=== PATIENT | female | born 1985 | race Caucasian/White ===

== ENCOUNTER 2019-05-23 13:05 | Outpatient (CLI) | payer MEDICAID, SELFPAY ==
--- NOTE | 2019-05-23 13:12 | US_ITS ---
WS: [id number] ULTRASOUND RENAL TECHNIQUE: Ultrasound examination of both kidneys. CLINICAL INFORMATION: RLQ ABDOMINAL PAIN COMPARISON: None. FINDINGS: RIGHT: Right kidney is normal in size and appearance. Echogenicity: Normal. Cortical thickness: 1.5 cm; Normal. Hydronephrosis: None. Perinephric fluid: None. Right kidney measures: 11.2 cm x 5.7 cm x 4.6 cm. LEFT: Left kidney is normal in size and appearance. Echogenicity: Normal. Cortical thickness: 1.5 cm; Normal. Hydronephrosis: None. Perinephric fluid: None. Left kidney measures: 11.9 cm x 5.0 cm x 5.6 cm. Normal visualized aorta. Normal bladder. Partially visualized intrauterine gestation US/US renal BI* [id number] IMPRESSION: Normal renal ultrasound
--- NOTE | 2019-05-23 13:12 | US_ITS ---
WS: [id number] ULTRASOUND ABDOMEN LIMITED CLINICAL INFORMATION: R LOWER QUADRANT ABDOMINAL PAIN COMPARISON: None. FINDINGS: Right ovary is normal in appearance. Normal vascularity. Small cyst right ovary measuring 1.3 x 0.7 C M. Appendix is not definitely visualized. However no secondary signs of acute appendicitis. No noncompre ssible bowel. No cystic or solid mass in the right lower quadrant. US/US abdomen limited [id number] IMPRESSION: 1. Normal right ovary with a small right ovarian cyst. 2. Appendix is not definitely visualized, however no evidence of acute appendi citis.
== END 2019-05-23 13:06 | disposition home or self-care (01) ==
PROVIDERS: Family Provider Family Medicine; PCP Family Medicine; Visit Provider Family Medicine
DX: R10.31 Right lower quadrant pain (principal); N83.201 Unspecified ovarian cyst, right side
CPT/HCPCS: 76705; 76770

== ENCOUNTER 2019-06-07 09:36 | Outpatient (CLI) | payer MEDICAID, SELFPAY ==
--- NOTE | 2019-06-07 10:15 | US_ITS ---
WS: [id number] OB ultrasound, 06/07/2019 Clinical Data: SUPERVISION OF ELDERLY MULTIGRAVIDA/ANATOMY CHECK Comparison: OB ultrasound, 04/08/2019. Findings: There is a single intrauterine in a variable lie. The placenta is posterior and grade 0. Th ere is a normal amount of amnionic fluid. The heart rate is 141 beats per minute. Measurements of growth and development: BPD: 4.2 cm HC: 15.7 cm AC: 12.9 cm FL: 2.8 cm The estimated weight is 242 or approximately 8 ounces. The estimated gestational age is 18w4d w ith an MIRTHA of approximately 11/04/2019. anatomy show a normal stomach, kidneys, bladder, cord insertion, three-vessel cord, entire spin e, four-chamber heart, lateral cerebral ventricles, cerebellum and cisterna magna. US/US OB >= 14 weeks fetus [id number] Impression: 1. Single intrauterine in variable lie. 2. Estimated gestational age 18w4d with an MIRTHA of 11/04/2019. 3. heart rate 141 beats per minute.
== END 2019-06-07 09:37 | disposition home or self-care (01) ==
PROVIDERS: Family Provider Family Medicine; PCP Family Medicine; Visit Provider Family Medicine
DX: O09.521 Supervision of elderly multigravida, first trimester (principal); Z36.89 Encounter for other specified antenatal screening; Z3A.18 18 weeks gestation of pregnancy
CPT/HCPCS: 76805

== ENCOUNTER 2019-09-10 14:45 | Outpatient (CLI) | payer MEDICAID, SELFPAY ==
--- NOTE | 2019-09-10 | US_ITS ---
WS: [id number] ULTRASOUND OB LIMITED TECHNIQUE: Limited ultrasound examination of the fetus. CLINICAL INFORMATION: GROWTH CHECK COMPARISON: June 07, 2019 FINDINGS: Cervix measures 3.8 cm Single interuterine gestation. presentation is breech Placental location is posterior. Placenta grade: 0. heart rate 153 BPM. Normal amniotic fluid volume. Anatomy: BDP: 8.3 cm = 33w3d HC: 30.3 cm = 33w4d AC: 28.0 cm = 32w0d FEMUR LENGTH: 6.4 cm = 33w1d Estimated weight: 4 lbs. 7 oz. EGA by ultrasound: 33 weeks 0 days MIRTHA by ultrasound: October 29, 2019 US/US OB limited [id number] IMPRESSION: 1. Single intrauterine gestation with breech presentation. 2. Placenta is posterior grade 0. 3. Normal amniotic fluid volume. 4. Estimated gestational age 33 weeks 0 days with estimated delivery 2019
== END 2019-09-10 14:46 | disposition home or self-care (01) ==
PROVIDERS: Family Provider Family Medicine; PCP Family Medicine; Visit Provider Family Medicine
DX: O09.523 Supervision of elderly multigravida, third trimester (principal); O09.813 Supervision of pregnancy resulting from assisted reproductive technology, third trimester; Z3A.33 33 weeks gestation of pregnancy
CPT/HCPCS: 76815

== ENCOUNTER 2019-09-10 16:03 | Outpatient (CLI) | payer MEDICAID, SELFPAY ==
[2019-09-10 16:11] VITALS: TEMP 36.6
[2019-09-10 16:26] VITALS: BP 116/55; PULSE 72
[2019-09-10 16:41] VITALS: BP 116/58; PULSE 71
[2019-09-10 16:56] VITALS: BP 120/60; PULSE 79
[2019-09-10 19:26] VITALS: BMI 32.5
== END 2019-09-10 17:00 | disposition home or self-care (01) ==
LOC: OPOB 16:05
PROVIDERS: Family Provider Family Medicine; PCP Family Medicine; Visit Provider Family Medicine
DX: O26.899 Other specified pregnancy related conditions, unspecified trimester (principal); Z3A.00 Weeks of gestation of pregnancy not specified; R10.9 Unspecified abdominal pain
CPT/HCPCS: 59025; 99211

== ENCOUNTER 2019-10-13 03:20 | Outpatient (CLI) | payer MEDICAID, SELFPAY ==
[2019-10-13] VITALS (18 sets, daily range): BP systolic 0–138; BP diastolic 0–68; PULSE 66–81; TEMP 36.8; O2SAT 97–98; BMI 32.5
== END 2019-10-13 04:55 | disposition home or self-care (01) ==
LOC: OPOB 03:23 → OBGYN 04:55
PROVIDERS: PCP Family Medicine; Visit Provider Family Medicine
DX: O26.899 Other specified pregnancy related conditions, unspecified trimester (principal); Z3A.00 Weeks of gestation of pregnancy not specified; N89.8 Other specified noninflammatory disorders of vagina
CPT/HCPCS: 59025; 83986; 99211

== ENCOUNTER 2019-10-14 14:28 | Outpatient (CLI) | payer MEDICAID, SELFPAY ==
--- NOTE | 2019-10-14 14:31 | USCV_ITS ---
Yuliana Crawford Age: 34 Gender: F : 1985 Exam Date: 10/14/2019 14:43 Ordering Phys: Asha Bowen MD Technologist: Alia Foss Exam Location: [facility] [place] Indication: PAIN HISTORY: Lower extremity pain. PROCEDURES: Venous duplex imaging was performed in only the left lower extremity. The following venous structures were evaluated: common femoral vein, profunda vein, proximal portion of the greater saphenous vein, superficial femoral vein, and the popliteal vein. In addition, the posterior tibial and peroneal trunk were evaluated. Serial compression, augmentation maneuvers, and spectral Doppler flow evaluation were performed. FINDINGS: Normal 2-D Doppler and augmentation and compressibility throughout the lower extremity venous structures. Additional imaging through the proximal calf veins also reveals no thrombus. Limited evaluation of the greater saphenous vein is patent with no thrombus. CONCLUSIONS No DVT left lower extremity. Dr. Chani Preciado DO (Electronically Signed) Final Date: 14 October 2019 16:18 S
== END 2019-10-14 14:29 | disposition home or self-care (01) ==
LOC: RAD 14:30
PROVIDERS: PCP Family Medicine; Visit Provider Family Medicine
DX: M79.662 Pain in left lower leg (principal); M79.605 Pain in left leg
CPT/HCPCS: 93971

== ENCOUNTER 2019-11-07 02:00 | Inpatient (IN) | payer MEDICAID, SELFPAY ==
[2019-11-06 20:53] VITALS: BP 129/68; PULSE 75; RESP 16; TEMP 36.7
[2019-11-06 21:00] VITALS: BMI 34.4
[2019-11-06] MEDS: miSOPROStol 100 mcg tablet 25 MCG VAGINAL (21:47)
[2019-11-06 21:54] VITALS: BP 128/59; PULSE 70
[2019-11-06 22:14] VITALS: BP 115/57; PULSE 72
[2019-11-06 22:17] LABS: Basophils % 0.5 %; Eosinophils # 0.2 10^3/uL (0.0-0.8); Eosinophils % 1.7 %; Hematocrit 37.1 % (37.0-47.0); Hemoglobin 12.1 g/dL (11.5-15.3); Lymphocytes # 1.6 10^3/uL (0.8-4.8); Lymphocytes % 18.2 %; Mean Corpuscular HGB Conc 32.6 g/dL (30.0-36.0); Mean Corpuscular Hemoglobin 28.6 pg (28.0-34.0); Mean Corpuscular Volume 87.7 fL (81-99); Mean Platelet Volume 10.6 fL (7.4-10.4); Monocytes # 0.6 10^3/uL (0.2-0.9); Monocytes % 6.5 %; Neutrophils # 6.31 10^3/uL (1.8-7.7); Neutrophils % 72.1 %; Nucleated Red Blood Cells % 0 %; Platelet Count 261 10^3/cmm (130-400); Red Blood Count 4.23 10^6/uL (4.1-5.3); Red Cell Distribution Width 13.5 % (12.1-15.1); White Blood Count 8.8 10^3/uL (4.0-10.0)
[2019-11-06 23:20] VITALS: BP 127/57; PULSE 64; RESP 16; TEMP 36.5
[2019-11-07] VITALS (82 sets, daily range): BP systolic 0–147; BP diastolic 0–85; PULSE 61–116; RESP 16–18; TEMP 36.7–37.1; O2SAT 98
[2019-11-07] MEDS: lactated ringers 1,000 ML 999 ML IV (02:05)
--- NOTE | 2019-11-07 03:03 | ANES.PAUD2 ---
Pre-Anesthetic Update Pre-Anesthetic Assessment: Date of Surgery/Procedure: 11/07/19 Preop Diagnosis: IUP Proposed Procedure: epidural Any changes to Pre-Anesthetic Assessment?: No Labs Last 48hrs: Laboratory Results - last 48 hr 11/06/19 21:40 WBC 8.8 RBC 4.23 Hgb 12.1 Hct 37.1 MCV 87.7 MCH 28.6 MCHC 32.6 RDW 13.5 Plt Count 261 MPV 10.6 H Neut % (Auto) 72.1 Lymph % (Auto) 18.2 Caldwell % (Auto) 6.5 Eos % (Auto) 1.7 Baso % (Auto) 0.5 Neut # (Auto) 6.31 Lymph # (Auto) 1.6 Caldwell # (Auto) 0.6 Eos # (Auto) 0.2 Baso # (Auto) 0.0 Nucleated RBC % (a uto) 0 Nucleated RBCs # 0.0 Vitals: Temperature 97.7 F 11/06/19 23:20 Temperature Source Oral 11/06/19 23:20 Pulse Rate 75 11/07/19 00:49 Pulse Rhythm 11/07/19 01:06 Pulse Strength 3+ Normal 11/07/19 01:06 Respiratory Rate 16 11/06/19 23:20 Respiratory Effort Non-Labored 11/07/19 01:06 Respiratory Depth Normal 11/07/19 01:06 Respiratory Patter n 11/07/19 01:06 Blood Pressure 135/67 11/07/19 00:49 Blood Pressure Dena n 85 11/07/19 00:49 Oxygen Delivery Me thod 11/07/19 01:06 Exam: Pre-Anes Outpt Exam: alert, oriented x 3, clear to auscultation bilaterally and regular rate & rhythm Cardiac Studies: No Data to Display
[2019-11-07] MEDS: lactated ringers 1,000 ML 125 ML IV (03:07)
--- NOTE | 2019-11-07 03:31 | ANES.PROC ---
Anesthesia Procedures Procedure/Date: 11/07/19 epidural Procedure Narrative: epidural complete, bolus given, epidural pump initiated with COIN BOX INSPECTOR education given, vitals taken during procedure using OBIX system and satisfactory throughout, patient admits to decrease pain, report of procedure to OB RN Epidural: Time Out Performed: Yes Consents Signed: Procedure Consent Consent: requested by attending/covering physician, from patient, risks and benefits reviewed and patient agrees to proceed Lumbar Level: L3-L4 Epidural position: sitting Epidural procedure: sterile prep of area, 1% lidocaine to numb the area (3 mL), 18 g needle, negative for paresthesia passed, neg for paresthesia, test dose given, 1.5% xylocaine 1:200k epi (5 mL), 0.2% Ropivacaine bolus ml (5 mL), placed PCEA, no systemic response, sterile dressing applied, L.U.D. no apparent complications and 0.2% Ropiavacaine @ mls/hr (13 mL/hr)
--- NOTE | 2019-11-07 07:04 | PM.OBGYHP ---
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 She presented last evening at 39-6/7 weeks gestation for induction of labor secondary to advanced maternal age and assisted reproductive technology involved with this . She also has hypothyroidism, and levothyroxine has been adjusted accordingly with TSH checked every trimester. Her course has been relatively uncomplicated with a transfer of care from her reproductive specialists at about 10 weeks gestation. She also was exposed to fifth's disease earlier in the , and her labs were negative. She had a history of gestational diabetes with her first but has passed both an early 2-hour screen for pre-existing diabetes and her routine screening for gestational diabetes at 26 to 28 weeks. She also had a history of gestational hypertension with her first and takes aspirin this as a result of that history Present Details : 3 Para: 1 Date of Last Menstrual Period: 01/26/19 Calculated Date of Delivery: 11/02/19 Gestational Age Based on Last Menstrual Period: 40 Dating criteria OB: other (Assisted reproductive technology) care: good care Ultrasounds: normal 1st trimester US and normal mid trimester US Obstetrical complications: other (Assisted reproductive technology) Medical complications OB: other (Advanced maternal age) Labs Rubella: Immune RPR: Negative GBS: Negative HBsAG: Negative Other Lab Information: INITIAL LABS: Blood Type: O+ D (Rh) Type: Positive Antibody Screen: Negative 2-hour pre-existing diabetes screen: Passed HCT/HB.3/38.7 Pap Test: Normal with high risk HPV negative Rubella: Immune VDRL: Nonreactive Urine Culture/Screen: Negative HBsAg: Negative HIV Counseling/Testing: Negative Chlamydia: Negative GC: Negative 8-18 WEEK LABS: MSAFP/Multiple Markers: Negative 24-30 WEEK LABS: HCT/HGB: 14.1 Diabetes Screen: 126 Tdap: Given 08/12/2019 32-36 WEEK LABS: Group B Strep (35-37 weeks): Negative Note: TSH has been checked with every trimester and has been kept within normal range recommended for Review of Systems Const: Denies: fever(s) : Denies: vaginal odor, vaginal bleeding, vaginal discharge or pelvic pain Medications/Allergies Home Medications Medication Instructions Recorded Confirmed Last Taken Type PNV cmb#95-ferrous fumarate-FA 1 tab PO DAILY 10/13/19 11/06/19 11/05/19 21:00 History [] alum-mag hydroxide-simeth [Antacid] PRN PRN 10/13/19 11/05/19 21:00 History aspirin 81 mg PO DAILY 10/13/19 11/06/19 11/06/19 12:00 History levothyroxine 112 mcg PO DAILY 10/13/19 11/06/19 11/06/19 08:00 History Allergies Allergy/AdvReac Type Severity Reaction Status Date / Time No Known Allergies Allergy Verified 11/06/19 23:28 PFS 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 PFSH: Medical History (Updated 11/07/19 @ 07:39 by Asha Bowen MD) GERD (gastroesophageal reflux disease) Hypothyroidism Renal calculus Torsion of left ovary Still has ovary but was surgically reduced Surgical History (Updated 11/07/19 @ 07:22 by Asha Bowen MD) S/P cholecystectomy S/P dilation and curettage S/P tonsillectomy Status post hysteroscopic polypectomy Status post lumbar laminectomy L4/5 Status post wisdom tooth extraction Family History (Updated 11/07/19 @ 07:24 by Asha Bowen MD) Father CAD (coronary artery disease) Myocardial infarction age less than 55 Hypertension Mother Cancer Breast and uterine cancer Social History (Updated 11/07/19 @ 07:26 by Asha Bowen MD) Smoking and tobacco status: former smoker Second hand smoke exposure: No Alcohol intake: never Substance/Drug Use: never Adopted: No Caregiver/support person: Yes Lives independently: Yes Household members: spouse and children Marital status: Number of children: 1 Number of grandchildren: 0 Highest education level completed: High School Graduate 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 Date GA/Weeks Outcome Route Wt Inf Gender Labor Lgth Comp. Anesthesia Location 09/20/15 40 live - full term Vaginal 7 lb 8 oz Female regional [facility] 03/08/18 7 spontaneous [facility] Delivery Date: 09/20/15 Gestational diabetes, hypothyroidism, intrauterine insemination, occiput posterior delivery, episiotomy, gestational hypertension, induction of labor with Pitocin and cervical bulb Asha Bowen Delivery Date: 03/08/18 Needed a D and C Asha Bowen Care MIRTHA Calculator Estimated Delivery Date Method Current WG Current Estimate 11/02/19 LMP (Certain) 40w 5d Other Estimates 11/07/19 Manual 40w 0d Calculated via assisted reproductive technology Expected Delivery Route/Plan Vaginal/Cytotec cervical ripening and induction of labor Vitals/I&O/Wt Last Vital Signs Temp 98.7 F 11/07/19 05:54 Pulse 66 11/07/19 07:01 Resp 16 11/07/19 05:54 BP 105/54 11/07/19 07:01 Pulse Ox 98 11/07/19 03:25 11/06/19 11/07/19 11/07/19 22:59 06:59 14:59 Intake Total 1000 / 1000 Balance 1000 / 1000 Weight last 48 hrs Weight 207 lb Weight 207 lb Physical Exam Narrative: EXAM NARRATIVE: For complete history and physical examination please refer to her record. heart tones have a baseline in the 130s with moderate variability, accelerations and no decelerations. When patient arrived she had no contractions spontaneously. Const: COMMON NORMALS: no acute distress, patient oriented x3, healthy appearing, alert and well nourished : MANUAL OB EXAM: dilated (1.5cm to 2 cm), effaced 25%, station (High to -3) and other (Vertex, ballotable) AMNIOTIC FLUID: no fluid Urinary Catheter Management^: Valdez Latex: Cath Placed During This Visit: yes Urinary Catheter Date of Insertion: 11/07/19 Urinary Catheter Time of Insertion: 03:40 Data : 11/06/19 21:40 A&P Assessment and plan (1) Encounter for induction of labor: Cytotec was placed last evening after it had been discussed in the office. Patient rapidly dilated from 1-1/2-2 to 4 cm and is now over 50% effaced. She opted for epidural anesthesia, received it and has become comfortable. Upon her last cervical exam she was 5 cm dilated but also had a ballotable baby. Status: Acute (2) Post-term , 40-42 weeks of gestation: Status: Acute (3) resulting from assisted reproductive technology in third trimester: Status: Acute (4) Hypothyroidism affecting in third trimester: TSH has been within normal limits according to trimester guidelines with adjustment of levothyroxine as necessary during the Status: Acute (5) Advanced maternal age during in third trimester: Status: Acute Attestations Medical Necessity Statement*: As patient is undergoing induction of labor she will require inpatient hospitalization. Time Spent in Patient Care: Greater than 35 minutes Coding Level of Care Code Acute Chef Teacher for Chg Fwd Diagnoses Encounter for induction of labor Z34.90 Post-term , 40-42 weeks of gestation O48.0 resulting from assisted reproductive technology in third trimester O09.813 Hypothyroidism affecting in third trimester O99.283; E03.9 Advanced maternal age during in third trimester
[2019-11-07] MEDS: oxytocin 30 UNIT/500 ML BAG IV (07:39)
[2019-11-07] MEDS: dextrose 5%-lactated ringers 1,000 ML 125 ML IV (10:39)
--- NOTE | 2019-11-07 11:58 | PM.DELIVERY ---
Delivery Note: Date of delivery: November 07, 2019 Pre-Delivery Course: Patient arrived last evening for Cytotec cervical ripening and induction of labor secondary to 40 weeks gestation with advanced maternal age and assisted reproductive technology as well as hypothyroidism. She received a dose of Cytotec last evening around 10 PM and by 2 AM had gone from 1-1/2 cm dilated and 25% effaced to 4 cm dilated and over 50% effaced. She opted for her epidural, received it and became comfortable. She was then found to be 5 cm dilated. Baby was -3 station with cervix 5 cm dilated and 60 to 70% effaced this morning upon my exam. Head was not engaged but was not easy to push away. Therefore, amniotomy was performed at 7:45 AM this morning and was productive of a large amount of clear fluid. Clinically this could be consistent with hydramnios, which is what patient had last time clinically and was gestational diabetic. She was started on Pitocin per the moderate dose protocol this morning just prior to amniotomy and needed very minimal adjustment of dose. By 11:10 AM her cervix was completely dilated. Delivery: I was contacted at 11:14 AM and arrived at 11:19 AM, and we began the active portion of the second stage of her labor shortly thereafter. After just a few minutes of the active portion of the second stage, pretty much to contractions worth of pushing, patient delivered a viable male at 11:27 AM. Baby's head was OA. There was no nuchal cord. Bulb suctioning was done upon delivery of baby's head. Baby was placed on maternal abdomen by mom herself, and cord was clamped by myself and cut by the father the baby after approximately 30 seconds. Cord blood was obtained for cord blood profile. Patient had a large gush of amniotic fluid which was clear emerged from the canal after delivery of the baby as well. Intravenous Pitocin was begun in routine doses, and gentle traction was placed on the cord. The placenta delivered intact at 1130 and appeared to be normal. Fundal exam revealed a firm uterus. Cervix and perineum were inspected, and it appeared as though patient had a laceration along the lines of the episiotomy for her first baby which was occiput posterior at delivery. This was a first-degree perineal laceration which was repaired with 2-0 chromic in standard single layer running suture with the epidural as her anesthesia. Post-Delivery Status: Estimated blood loss was 100 mL. Mother and baby are stable. Baby weighed 7 pounds 12 ounces and was 21-1/4 inches in length. Apgars were 9 at 1 minute and 9 at 5 minutes. A&P Assessment and plan (1) Encounter for induction of labor: Status: Resolved (2) Post-term , 40-42 weeks of gestation: Status: Resolved (3) resulting from assisted reproductive technology in third trimester: Status: Resolved (4) Hypothyroidism affecting in third trimester: Status: Acute (5) Advanced maternal age during in third trimester: Status: Resolved (6) Spontaneous vaginal delivery: Routine orders, breast-feeding Status: Acute (7) First degree perineal laceration during delivery: Repaired in standard fashion with epidural as anesthesia Status: Acute Coding Level of Care Code Acute Apprentice Plant Attendant for Chg Fwd Diagnoses Encounter for induction of labor Z34.90 Post-term , 40-42 weeks of gestation O48.0 resulting from assisted reproductive technology in third trimester O09.813 Hypothyroidism affecting in third trimester O99.283; E03.9 Advanced maternal age during in third trimester Spontaneous vaginal delivery O80 First degree perineal laceration during delivery O70.0
[2019-11-07] MEDS: lanolin oint 7 gm 1 APPLIC TOPICAL (16:25)
[2019-11-07] MEDS: levothyroxine 112 mcg Tablet PO (16:26)
[2019-11-07] MEDS: prenatal vitamin Capsule 1 CAP PO (16:26)
--- NOTE | 2019-11-08 03:05 | PM.OBGYDC ---
Discharge Providers OPERATOR CONTROL ROOM Date of Admission: 11/07/19 02:00 Date of Discharge: 11/08/19 Attending Provider at Admission: Asha Bowen MD Attending Provider at Discharge: Asha Bowen MD Primary Care Provider: Asha Bowen MD Diagnoses at Discharge Discharge Diagnosis (1) Encounter for induction of labor: Status: Resolved (2) Post-term , 40-42 weeks of gestation: Status: Resolved (3) resulting from assisted reproductive technology in third trimester: Status: Resolved (4) Hypothyroidism affecting in third trimester: Status: Acute (5) Advanced maternal age during in third trimester: Status: Resolved (6) Spontaneous vaginal delivery: Status: Acute (7) First degree perineal laceration during delivery: Status: Acute Reason for Visit Reason for Visit: induction of labor Hospital Course Hospital Course: Patient arrived the evening of 11/06/2019 for cervical ripening and induction of labor at 39-6/7 weeks gestation secondary to advanced maternal age, hypothyroidism and assisted reproductive technology. She received 1 dose of Cytotec that evening and started at 1-1/2 cm dilated and 25% effaced. Within 4 hours she was 4 cm dilated and 60% effaced and jasper very regularly with increasing intensity. She opted for an epidural, received it and became comfortable and was then found to be 5 cm dilated shortly thereafter. At 7:45 AM on 11/07/2019 she underwent amniotomy productive of a large amount of clear fluid. Within 3-1/2 hours of amniotomy she was completely dilated, and after a 2 contraction active portion of the second stage of labor delivered a viable male weighing 7 pounds 12 ounces with Apgars of 9 at 1 minute and 9 at 5 minutes. Her placenta delivered uneventfully, and she sustained a first-degree perineal laceration which was repaired in standard 1 layer running stitch fashion with 2-0 chromic suture at her epidural as anesthesia. She sustained minimal blood loss. day 1 she states her bleeding is moderate and slowing down and that she has some cramping with breast-feeding and some perineal soreness which is relieved with use of hygienique, Dermoplast and ibuprofen. She needs no control and is ready for discharge at 24 hours which will be approximately 11:30 AM today. Discharge Summary: Patient knows that we will need to check a TSH at her 6-week visit and that she will have an ultrasound ordered on the soft tissue mass in her axillary region when she comes for baby's visit next week. Information Peripartum Data: Infant Delivery Method: Vaginal Laceration description: Perineal - 1st Degree (Repaired) Episiotomy description: None complications: none Physical Exam Const: COMMON NORMALS: no acute distress, patient oriented x3, no limitations, healthy appearing, alert and well nourished Neck/C-Spine: COMMON NORMALS: no JVD Resp: COMMON NORMALS: normal respiratory effort, No retractions, No use of accessory muscles and clear to auscultation bilaterally AUSCULTATION: clear to auscultation bilaterally Cardio: COMMON NORMALS: no JVD, regular rate, regular rhythm, S1 normal heart sound present, S2 normal heart sound present, No gallops present (Cardio), No clicks present (Cardio), No murmurs present (Cardio), No rub (Cardio) and Peripheral pulses 2+ throughout RATE: regular rate RHYTHM: regular rhythm HEART SOUNDS: S1 normal heart sound present and S2 normal heart sound present PERIPHERAL PULSES: Peripheral pulses 2+ throughout : UTERUS PALPATION: Yes Other OB uterine findings (Fundus firm, deep, 3 fingerbreadths below the umbilicus and nontender) Extremity: GENERAL: No edema Neuro: COMMON NORMALS: patient oriented x3 SENSORIUM/ORIENTATION: Yes alert Urinary Catheter Management^: Valdez Latex: Cath Placed During This Visit: yes, but has since been removed by the nurse Reason for Continuing Indwelling Catheter: Other Urinary Catheter Date of Insertion: 11/07/19 Urinary Catheter Time of Insertion: 03:40 Date Urinary Catheter Removed: 11/07/19 Time Urinary Catheter Discontinued: 11:15 Discharge Data Data Completed and Pending: Pending at discharge Category Date Time Status Hemagram Timed Lab 11/07/19 23:55 Ordered Vitals: Last Vital Signs Temp 98.1 F 11/07/19 15:45 Pulse 71 11/07/19 15:45 Resp 18 11/07/19 07:30 BP 119/74 11/07/19 15:45 Pulse Ox 98 11/07/19 15:45 Discharge Plan Discharge Patient Disposition: Home, Self-Care Condition: Stable Prescriptions: Continued levothyroxine 112 mcg Tablet 112 mcg PO DAILY RF: 0 PNV cmb#95-ferrous fumarate-FA [] 28 mg iron- 800 mcg Tablet 1 tab PO DAILY RF: 0 alum-mag hydroxide-simeth [Antacid] 200-200-20 mg/5 mL Suspension PRN PRN (Reason: Heartburn) RF: 0 Discontinued aspirin 81 mg Tablet,Chewable 81 mg PO DAILY RF: 0 Discharge Orders: Discharge Order (Routine); Ordered 11/08/19 Ordered By: Asha Bowen Referrals: Asha Bowen MD [Primary Care Provider] - 6 Weeks (We will schedule her axillary ultrasound when she comes in for babies visit with nj. We will also schedule a 6-week visit with 1 of our nurse practitioners at which time she will need her TSH checked.) Discharge Diet: Usual diet Discharge Activity: Limit activity as instructed Discharge Attestations OPERATOR CONTROL ROOM Time Spent in Discharge Care*: less than 30 min Specific Discharge Activities: Specific discharge activities: educating patient, documenting/other paperwork and evaluating patient/reviewing data Status at Discharge: Cognitive status at discharge: cognitively intact, Behavioral status at discharge: cooperative, Functional status at discharge: independent ambulation Overall status at discharge: patient is progressing back to baseline Coding Level of Care Code Acute Group Leader Wafer Polishing for Chg Fwd Diagnoses Encounter for induction of labor Z34.90 Post-term , 40-42 weeks of gestation O48.0 resulting from assisted reproductive technology in third trimester O09.813 Hypothyroidism affecting in third trimester O99.283; E03.9 Advanced maternal age during in third trimester Spontaneous vaginal delivery O80 First degree perineal laceration during delivery O70.0
[2019-11-08] MEDS: docusate sodium 100 mg Capsule PO (09:31)
[2019-11-08] MEDS: prenatal vitamin Capsule 1 CAP PO (09:31)
[2019-11-08] MEDS: levothyroxine 112 mcg Tablet PO (09:59)
[2019-11-08 10:01] VITALS: BP 121/76; PULSE 76; RESP 17; TEMP 36.7
[2019-11-08 13:29] LABS: Hematocrit 37.8 % (37.0-47.0); Hemoglobin 12.1 g/dL (11.5-15.3); Mean Corpuscular Hemoglobin 28.5 pg (28.0-34.0); Mean Corpuscular Volume 89.2 fL (81-99); Mean Platelet Volume 10.6 fL (7.4-10.4); Platelet Count 266 10^3/cmm (130-400); Red Blood Count 4.24 10^6/uL (4.1-5.3); Red Cell Distribution Width 13.7 % (12.1-15.1)
[2019-11-08 15:43] VITALS: BP 123/76; PULSE 71; RESP 17; TEMP 36.7
[2019-11-08 16:05] VITALS: BP 123/76; PULSE 71; RESP 17; TEMP 36.7
== END 2019-11-08 16:06 | disposition home or self-care (01) | DRG 807 ==
LOC: OBGYN 13:51 → OPOB 13:51
PROVIDERS: Admitting Provider Family Medicine; PCP Family Medicine; Visit Provider Family Medicine
DX: O48.0 Post-term pregnancy (principal); Z37.0 Single live birth; Z3A.40 40 weeks gestation of pregnancy; O70.0 First degree perineal laceration during delivery; O99.284 Endocrine, nutritional and metabolic diseases complicating childbirth; E03.9 Hypothyroidism, unspecified
CPT/HCPCS: 12345; 36415; 51702; 59025; 59409; 85025; 85027; 98960; 99211; J2795

== ENCOUNTER 2019-11-22 13:26 | Outpatient (CLI) | payer MEDICAID, SELFPAY ==
--- NOTE | 2019-11-22 | US_ITS ---
WS: [id number] INDICATION: Mass left axilla TECHNIQUE: Ultrasound left axilla FINDINGS: Ultrasound left axilla. A few Lymph nodes are visualized. Normal fatty hilum. 3 lymph nodes subcentimeter in size. Largest lymph no de measures 1.9 x 0.5 x 0.8 cm likely reactive. No other significant findings. US/US soft tissue/extremity [id number] IMPRESSION: A few incidental lymph nodes in the left axilla. Largest lymph node measures 1.9 x 0.8 cm likely reactive. If persistent discomfort or palpable ly mph node persists this could be biopsied with ultrasound if desired
== END 2019-11-22 13:27 | disposition home or self-care (01) ==
LOC: RAD 13:28
PROVIDERS: PCP Family Medicine; Visit Provider Family Medicine
DX: R22.32 Localized swelling, mass and lump, left upper limb (principal)
CPT/HCPCS: 76882

== ENCOUNTER 2020-01-29 10:00 | Outpatient (CLI) | payer MEDICAID, SELFPAY ==
--- NOTE | 2020-01-29 10:08 | US_ITS ---
WS: [id number] US soft tissue/extremity [id number] REASON FOR EXAM: LEFT AXILLA MASS/2 MONTH FOLLOW UP FINDINGS: There are 2 small lymph nodes demonstrated with identifiable sinus fat. They have an elongated appear ance. They are less than 5 mm in maximum dimension. They are unchanged compared to the previous exami nation of 11/22/2019. US/US soft tissue/extremity [id number] IMPRESSION: Small lymph nodes unchanged compared to the previous examination.
== END 2020-01-29 10:01 | disposition home or self-care (01) ==
LOC: US 10:01
PROVIDERS: PCP Internal Medicine; Visit Provider Nurse Practitioner Family
DX: R22.32 Localized swelling, mass and lump, left upper limb (principal)
CPT/HCPCS: 76882

== ENCOUNTER 2020-06-19 10:03 | Outpatient (CLI) | payer MEDICAID, SELFPAY ==
--- NOTE | 2020-06-19 10:14 | XR_ITS ---
WS: [id number] Exam: XR foot LT min 3V* [id number] Date/Time of Exam: 06/19/2020 10:14 AM Reason For Exam: LEFT FOOT PAIN Findings: The foot was examined in multiple views and reveals no fractures or displacements of bone. No bony a nomalies are noted. The bony elements are in adequate alignment. The joint spaces are smooth and eq uidistant. XR/XR foot LT min 3V* [id number] IMPRESSION: Negative left foot.
== END 2020-06-19 10:04 | disposition home or self-care (01) ==
PROVIDERS: PCP Internal Medicine; Visit Provider Family Medicine
DX: M79.672 Pain in left foot (principal)
CPT/HCPCS: 73630

== ENCOUNTER → 2020-07-04 10:20 | Outpatient (BNVA) | payer MEDICAID, SELFPAY | PROVIDERS: PCP Internal Medicine; Visit Provider Nurse Practitioner Family | DX: S29.012A Strain of muscle and tendon of back wall of thorax, initial encounter (principal); X58.XXXA Exposure to other specified factors, initial encounter; Z68.31 Body mass index [BMI] 31.0-31.9, adult; F17.211 Nicotine dependence, cigarettes, in remission | CPT/HCPCS: 81000 ==

== ENCOUNTER 2020-07-07 10:26 | Outpatient (RCR) | payer MEDICAID, SELFPAY | END 2020-07-22 23:59 | disposition home or self-care (01) | LOC: SPT 10:26 | PROVIDERS: PCP Internal Medicine; Referring Provider Family Medicine; Visit Provider Family Medicine | DX: M54.5 Low back pain (principal) | CPT/HCPCS: 97110; 97162 ==

== ENCOUNTER 2020-07-23 06:00 | Outpatient (RCR) | payer MEDICAID, SELFPAY | END 2020-08-21 23:59 | disposition home or self-care (01) | LOC: SPT 06:00 | PROVIDERS: PCP Internal Medicine; Referring Provider Family Medicine; Visit Provider Family Medicine | DX: M54.5 Low back pain (principal); G89.29 Other chronic pain | CPT/HCPCS: 97110 ==

== ENCOUNTER 2020-08-22 06:00 | Outpatient (RCR) | payer MEDICAID, SELFPAY | END 2020-09-21 23:59 | disposition home or self-care (01) | LOC: SPT 06:00 | PROVIDERS: PCP Internal Medicine; Referring Provider Family Medicine; Visit Provider Family Medicine | DX: M54.5 Low back pain (principal); G89.29 Other chronic pain | CPT/HCPCS: 97110 ==

== ENCOUNTER → 2020-09-28 08:13 | Outpatient (BNVA) | payer MEDICAID, SELFPAY | PROVIDERS: PCP Internal Medicine; Referring Provider Family Medicine; Visit Provider Podiatrist Foot & Ankle Surgery | DX: M25.572 Pain in left ankle and joints of left foot (principal) | CPT/HCPCS: 73630 ==

== ENCOUNTER → 2020-11-16 09:13 | Outpatient (BNVA) | payer MEDICAID, SELFPAY | PROVIDERS: PCP Internal Medicine; Visit Provider Podiatrist Foot & Ankle Surgery | DX: M65.9 Synovitis and tenosynovitis, unspecified; M79.672 Pain in left foot; M95.8 Other specified acquired deformities of musculoskeletal system | CPT/HCPCS: 73610 ==

== ENCOUNTER 2020-11-16 10:01 | Outpatient (CLI) | payer MEDICAID, SELFPAY | END 2020-11-16 10:02 | disposition home or self-care (01) | LOC: SPT 10:02 | PROVIDERS: PCP Internal Medicine; Visit Provider Podiatrist Foot & Ankle Surgery | DX: Z46.89 Encounter for fitting and adjustment of other specified devices (principal); G89.29 Other chronic pain; M54.5 Low back pain | CPT/HCPCS: 97760; L1902 ==

== ENCOUNTER 2020-12-03 08:31 | Outpatient (CLI) | payer MEDICAID, SELFPAY ==
--- NOTE | 2020-12-03 08:36 | MR_ITS ---
WS: [id number] MRI LEFT ANKLE NONCONTRAST TECHNIQUE: Sagittal proton density, sagittal STIR, axial proton density, axial T1, axial T2 fat sat, coronal proton density, coronal proton density fat sat, coronal T2 fat sat. CLINICAL INFORMATION: pain COMPARISON: None. FINDINGS: Normal ankle mortise. Normal bone marrow signal in the medial and lateral malleolus. No acute avulsio n fractures. 5 mm osteochondral defect in the medial talar dome involving the articular surface measu ring 5 mm. Small amount of associated edema. Mild depression and fragmentation. Lateral talar dome is normal in appearance.Small amount of edema involving the TMT articulations at the second and third T MT joints. Findings are likely degenerative. Recommend correlation with area of trauma. Small amount of edema in the lateral and intermediate cuneiform. Small amount of edema in the base of the second a nd third metatarsals. Normal bone marrow signal in the calcaneus. Anterior calcaneus is normal in appearance. Normal cuboid . Talar neck is normal. Normal navicular. Normal distal Achilles tendon. Normal peroneal tendon sheat h. Small chronic appearing split tear involving the peroneal brevis. No associated edema. Small amount of tenosynovitis involving the tibialis posterior. Extensor and flexor compartment tendo ns otherwise appear normal. MR/MR ankle LT wo con* [id number] IMPRESSION: 1. Osteochondral defect with a small amount of edema involving the medial reynaldo r dome measuring 5 mm. Small amount of fragmentation and depression consistent with AVN. 2. Normal medial and lateral malleolus. No acute avulsion fractures. 3. Small chronic appearing split tear involving the peroneus brevis. No edema. 4. Small amount of tenosynovitis involving the tibialis posterior. Extensor an d flexor compartment tendons are otherwise normal in appearance. 5. Small amount of edema involving the TMT articulations at the second and thi rd TMT joints described above. Findings are likely degenerative or posttraumati c.
== END 2020-12-03 08:32 | disposition home or self-care (01) ==
LOC: RADSHAW 08:33
PROVIDERS: PCP Internal Medicine; Visit Provider Podiatrist Foot & Ankle Surgery
DX: S96.812A Strain of other specified muscles and tendons at ankle and foot level, left foot, initial encounter (principal); X58.XXXA Exposure to other specified factors, initial encounter; R60.0 Localized edema; M65.872 Other synovitis and tenosynovitis, left ankle and foot
CPT/HCPCS: 73721

== ENCOUNTER 2020-12-14 14:55 | Outpatient (CLI) | payer MEDICAID, SELFPAY ==
--- NOTE | 2020-12-14 14:59 | XR_ITS ---
WS: [id number] Exam: XR chest 2V* [id number] Date/Time of Exam: 12/14/2020 3:19 PM Reason For Exam: CHEST PAIN/MYALGIA/FATIGUE Comparison 05/09/2017. Findings: The lungs are clear and fully expanded. Costophrenic angles are sharp. No infiltrates. Bronchovascula r relief appears normal. Cardiac silhouette is unremarkable. Bony elements are intact. XR/XR chest 2V* [id number] IMPRESSION: Unremarkable chest radiograph.
== END 2020-12-14 14:56 | disposition home or self-care (01) ==
PROVIDERS: PCP Internal Medicine; Visit Provider Family Medicine
DX: R07.9 Chest pain, unspecified (principal); R53.83 Other fatigue; M79.10 Myalgia, unspecified site
CPT/HCPCS: 71046

== ENCOUNTER → 2021-02-02 11:45 | Outpatient (BNVA) | payer MEDICAID, SELFPAY | PROVIDERS: PCP Internal Medicine; Visit Provider Internal Medicine | DX: R79.82 Elevated C-reactive protein (CRP) (principal); M25.50 Pain in unspecified joint; Z11.59 Encounter for screening for other viral diseases; Z11.1 Encounter for screening for respiratory tuberculosis; R53.83 Other fatigue; R51.9 Headache, unspecified; Z79.899 Other long term (current) drug therapy | CPT/HCPCS: 36415; 99204 ==

== ENCOUNTER 2021-02-02 13:17 | Outpatient (CLI) | payer MEDICAID, SELFPAY ==
--- NOTE | 2021-02-02 13:25 | XR_ITS ---
WS: [id number] XR hand LT 2V [id number] REASON FOR EXAM: R79.82 - Elevated C-reactive protein (CRP) FINDINGS: Joint spaces of the left hand are intact and well preserved. No focal bone abnormality of the left hand is identified. No soft tissue abnormality is noted. XR/XR hand LT 2V [id number] IMPRESSION: No significant bony or joint abnormality of the left hand. Incidentally noted is an unusual small capsule shaped radiodense body, central radiopaque nidus and rim, superimposed on the AP view between the ulnar styloid and the carpal bones. Uncertain etiology and significance. Possibly relates to previous surgery.
--- NOTE | 2021-02-02 13:25 | XR_ITS ---
WS: [id number] XR hand RT 2V [id number] REASON FOR EXAM: R79.82 - Elevated C-reactive protein (CRP) FINDINGS: Joint spaces of the right hand are intact and relatively well-preserved. No focal bony abnormality of the right hand is identified. Tiny calcification adjacent to the medial aspect of the distal mid phalanx of the fifth finger. Likel y related to previous ligamentous injury. XR/XR hand RT 2V [id number] IMPRESSION: No significant bony or joint abnormality of the right hand.
--- NOTE | 2021-02-02 13:25 | XR_ITS ---
WS: [id number] XR sacroiliac jts m 3V [id number] REASON FOR EXAM: L40.9 - Psoriasis, unspecified FINDINGS: Sacroiliac joints are well defined with thin sclerotic margins, no erosions, and no areas of fusion o r bridging. No other pelvic bony abnormality identified. Significant narrowing of the L5-S1 disc space with endplate sclerosis and osteophytic spurring. XR/XR sacroiliac jts m 3V [id number] IMPRESSION: Normal sacroiliac joints. Degenerative spondylosis at L5-S1 as above.
== END 2021-02-02 13:18 | disposition home or self-care (01) ==
PROVIDERS: PCP Internal Medicine; Visit Provider Internal Medicine
DX: R79.82 Elevated C-reactive protein (CRP) (principal); L40.9 Psoriasis, unspecified; Z11.59 Encounter for screening for other viral diseases; Z11.1 Encounter for screening for respiratory tuberculosis
CPT/HCPCS: 72202; 73120; 81003; 83516; 86160; 86162; 86200; 86235; 86255; 86376; 86480; 86704; 86803; 87340

== ENCOUNTER 2021-02-04 16:05 | Outpatient (CLI) | payer MEDICAID, SELFPAY ==
[2021-02-04 16:47] LABS: Basophils # 0.1 10^3/uL (0.0-0.1); Eosinophils # 0.2 10^3/uL (0.0-0.8); Eosinophils % 2.7 %; Hematocrit 41.4 % (37.0-47.0); Hemoglobin 13.8 g/dL (11.5-15.3); Lymphocytes # 2.9 10^3/uL (0.8-4.8); Lymphocytes % 43.1 %; Mean Corpuscular HGB Conc 33.3 g/dL (30.0-36.0); Mean Corpuscular Hemoglobin 29.8 pg (28.0-34.0); Mean Corpuscular Volume 89.4 fl (81-99); Mean Platelet Volume 9.2 fL (7.4-10.4); Monocytes # 0.5 10^3/uL (0.2-0.9); Neutrophils # 3.06 10^3/uL (1.8-7.7); Neutrophils % 45.8 %; Nucleated Red Blood Cells % 0 %; Platelet Count 389 10^3/cmm (130-400); Red Blood Count 4.63 10^6/uL (4.1-5.3); Red Cell Distribution Width 13.1 % (12.1-15.1); White Blood Count 6.7 10^3/uL (4.0-10.0)
[2021-02-04 17:24] LABS: Calcium 9.4 mg/dL (8.5-10.5)
[2021-02-04 17:30] LABS: Parathyroid Hormone 50.6 pg/mL (15-65)
[2021-02-04 17:34] LABS: Alanine Aminotransferase 15 U/L (0-33); Albumin Level 4.4 g/dL (3.5-5.2); Alkaline Phosphatase 77 IU/L (35-105); Anion Gap 11.6 (5-19); Aspartate Amino Transferase 16 U/L (0-32); Blood Urea Nitrogen 10 mg/dL (6-20); C Reactive Protein 1.3 mg/L (0.0-4.9); Calcium 9.1 mg/dL (8.5-10.5); Carbon Dioxide 28 mmol/L (22-29); Chloride 104 mmol/L (98-107); Creatine Phosphokinase 86 U/L (26-192); Ferritin 155 ng/mL (15-150); Globulin 2.5 g/dL (1.3-4.6); Glomerular Filtration Rate 111.9 mL/min (90-130); Glucose 81 mg/dL (65-115); Iron 51 ug/dL (37-145); Magnesium 1.9 mg/dL (1.7-2.3); Osmolality Calculated 288 mOsm/kg (285-295); Phosphorus 3.4 mg/dL (2.5-4.5); Potassium 3.6 mmol/L (3.5-5.1); Sodium 140 mmol/L (136-145); Thyroid Stimulating Hormone 3.88 uIU/mL (0.27-4.20); Total Bilirubin 0.2 mg/dL (0.15-1.2); Total Protein 6.9 g/dL (6.6-8.7); Uric Acid 5.6 mg/dL (2.4-5.7)
== END 2021-02-04 16:06 | disposition home or self-care (01) ==
LOC: LAB 16:12
PROVIDERS: PCP Internal Medicine; Visit Provider Internal Medicine
DX: R79.82 Elevated C-reactive protein (CRP) (principal)
CPT/HCPCS: 36415; 80053; 82310; 82550; 82728; 83540; 83735; 83970; 84100; 84443; 84550; 85025; 86140

== ENCOUNTER → 2021-02-17 12:43 | Outpatient (BNVA) | payer MEDICAID, SELFPAY | PROVIDERS: PCP Internal Medicine; Visit Provider Internal Medicine | DX: M25.50 Pain in unspecified joint (principal) | CPT/HCPCS: 99214 ==

== ENCOUNTER 2021-04-06 15:01 | Outpatient (CLI) | payer MEDICAID, SELFPAY ==
--- NOTE | 2021-04-06 15:07 | XR_ITS ---
WS: [id number] XR ribs LT 2V* [id number] REASON FOR EXAM: LEFT BACK PAIN, THORACIC REGION FINDINGS: No fracture or focal bone lesion of the left ribs. Left lung and pleura are normal. No soft tissue abnormality. XR/XR ribs LT 2V* [id number] IMPRESSION: No significant abnormality.
== END 2021-04-06 15:02 | disposition home or self-care (01) ==
LOC: RAD 15:04
PROVIDERS: PCP Internal Medicine; Visit Provider Family Medicine
DX: M54.6 Pain in thoracic spine (principal)
CPT/HCPCS: 71100

== ENCOUNTER 2021-04-12 13:16 | Outpatient (CLI) | payer MEDICAID, SELFPAY ==
--- NOTE | 2021-04-12 13:45 | MR_ITS ---
WS: [id number] MRI HEAD WITH CONTRAST TECHNIQUE: Sagittal T1, T2 axial, T2 axial FLAIR, axial susceptibility weighted imaging, axial diffus ion weighted images, and coronal T2 images were obtained. Pre and post-T1 axial and post T1 coronal i mages. ADC and FSPGR images. CLINICAL INFORMATION: HEADACHE, TENSION, CHRONIC COMPARISON: CT 2011 FINDINGS: No evidence of restricted diffusion to suggest acute ischemia.Scattered small foci of T2 hyperintensi ty in the subcortical white matter nonspecific in a patient this age but can be seen with migraine he adaches. No hemosiderin on susceptibly weighted imaging. Normal optic chiasm and pituitary infundibul um. Temporal lobes and hippocampal formations are normal in appearance. Normal posterior fossa. Normal va scular flow voids at the skull base. No extra axial fluid collections. Paranasal sinuses and mastoid air cells are well aerated. No abnormal gadolinium enhancement. Normal visualized dural venous sinuses. MR/MR head wo/w con [id number] IMPRESSION: 1. No evidence of restricted diffusion to suggest acute ischemia. 2. Several tiny punctate foci of T2 hyperintensity in the subcortical and kamari ventricular white matter nonspecific but can be seen with migraine headaches. 3. No abnormal gadolinium enhancement. 4. No hemosiderin on susceptibly weighted images. 5. Normal optic chiasm and pituitary infundibulum. 6. No other significant findings.
[2021-04-12] MEDS: gadobenate dimeglumine 20 mL vial IV (14:25)
== END 2021-04-12 13:17 | disposition home or self-care (01) ==
PROVIDERS: PCP Internal Medicine; Visit Provider Nurse Practitioner Family
DX: G44.229 Chronic tension-type headache, not intractable (principal)
CPT/HCPCS: 70553; A9577

== ENCOUNTER 2021-06-07 08:13 | Outpatient (CLI) | payer MEDICAID, SELFPAY ==
[2021-06-07 08:56] LABS: Basophils # 0.1 10^3/uL (0.0-0.1); Basophils % 1.3 %; Eosinophils # 0.3 10^3/uL (0.0-0.8); Eosinophils % 5.4 %; Hematocrit 45.5 % (37.0-47.0); Lymphocytes # 1.9 10^3/uL (0.8-4.8); Lymphocytes % 35.8 %; Mean Corpuscular Hemoglobin 28.6 pg (28.0-34.0); Mean Corpuscular Volume 86.8 fl (81-99); Mean Platelet Volume 9.6 fL (7.4-10.4); Monocytes # 0.3 10^3/uL (0.2-0.9); Monocytes % 6.3 %; Neutrophils # 2.75 10^3/uL (1.8-7.7); Nucleated Red Blood Cells % 0 %; Platelet Count 352 10^3/cmm (130-400); Red Blood Count 5.24 10^6/uL (4.1-5.3); Red Cell Distribution Width 12.4 % (12.1-15.1); White Blood Count 5.4 10^3/uL (4.0-10.0)
[2021-06-07 09:22] LABS: Alanine Aminotransferase 18 U/L (0-33); Albumin Level 4.9 g/dL (3.5-5.2); Alkaline Phosphatase 70 IU/L (35-105); Anion Gap 14.8 (5-19); Aspartate Amino Transferase 17 U/L (0-32); Blood Urea Nitrogen 10 mg/dL (6-20); Calcium 9.8 mg/dL (8.5-10.5); Carbon Dioxide 22 mmol/L (22-29); Chloride 106 mmol/L (98-107); Globulin 2.8 g/dL (1.3-4.6); Glomerular Filtration Rate 93.6 mL/min (90-130); Glucose 87 mg/dL (65-115); Osmolality Calculated 286 mOsm/kg (285-295); Potassium 3.8 mmol/L (3.5-5.1); Sodium 139 mmol/L (136-145); Total Bilirubin 0.5 mg/dL (0.15-1.2); Total Protein 7.7 g/dL (6.6-8.7)
[2021-06-07 09:23] LABS: Erythrocyte Sedimentation Rate 1 mm/hr (0-15)
[2021-06-07 09:27] LABS: Cortisol Random 7.92 ug/dL (2.47-19.5)
[2021-06-10 12:48] LABS: Adrenocorticotropic Hormone 12 pg/mL (6-50)
== END 2021-06-07 08:14 | disposition home or self-care (01) ==
LOC: LAB 08:21
PROVIDERS: PCP Internal Medicine; Visit Provider Internal Medicine
DX: E03.9 Hypothyroidism, unspecified (principal); M25.50 Pain in unspecified joint; O99.283 Endocrine, nutritional and metabolic diseases complicating pregnancy, third trimester; R79.82 Elevated C-reactive protein (CRP); Z79.899 Other long term (current) drug therapy
CPT/HCPCS: 36415; 80053; 82024; 82533; 85025; 85651; 86140

== ENCOUNTER → 2021-06-09 10:24 | Outpatient (BNVA) | payer MEDICAID, SELFPAY | PROVIDERS: PCP Internal Medicine; Visit Provider Internal Medicine | DX: R79.82 Elevated C-reactive protein (CRP) (principal); M25.50 Pain in unspecified joint; R53.83 Other fatigue; K52.9 Noninfective gastroenteritis and colitis, unspecified | CPT/HCPCS: 84182; 86235; 99214 ==

== ENCOUNTER → 2021-10-21 13:56 | Outpatient (BNVA) | payer MEDICAID, SELFPAY | PROVIDERS: PCP Internal Medicine; Visit Provider Obstetrics & Gynecology | DX: Z01.419 Encounter for gynecological examination (general) (routine) without abnormal findings (principal); Z87.42 Personal history of other diseases of the female genital tract | CPT/HCPCS: 83036; 83525; 84443; 87624 ==

== ENCOUNTER 2021-11-04 10:53 | Outpatient (CLI) | payer MEDICAID, SELFPAY ==
--- NOTE | 2021-11-04 11:01 | MM_ITS ---
WS: [id number] SCREENING DIGITAL BREAST TOMOSYNTHESIS MAMMOGRAM WITH CAD HISTORY: Screening mammogram. COMPARISON: None available. Bilateral CC and MLO with tomosynthesis views submitted. Synthetic mammography reviewed. Computer aid ed detection analyzed. Breast composition: There are scattered areas of fibroglandular density. No suspicious masses, microc alcifications or architectural distortion. MM/[place] [id number] IMPRESSION: BI-RADS: 1-Negative FOLLOW UP: 1 Year Follow-up
== END 2021-11-04 10:54 | disposition home or self-care (01) ==
LOC: RAD 10:57
PROVIDERS: PCP Internal Medicine; Visit Provider Obstetrics & Gynecology
DX: Z12.31 Encounter for screening mammogram for malignant neoplasm of breast (principal)
CPT/HCPCS: 77063; 77067

== ENCOUNTER 2021-12-21 09:04 | Observation (INO) | payer MEDICAID, SELFPAY ==
[2021-12-20 10:21] VITALS: BMI 27.8
[2021-12-21] VITALS (25 sets, daily range): BP systolic 91–133; BP diastolic 59–79; PULSE 66–119; RESP 13–25; TEMP 36.1–36.8; O2SAT 92–100
[2021-12-21 06:17] LABS: OR HCG Qualitative Urine Negative (Negative)
[2021-12-21] MEDS: CELEcoxib 200 mg Capsule 400 MG PO (06:17)
[2021-12-21] MEDS: gabapentin 300 mg Capsule PO (06:18)
[2021-12-21] MEDS: phenazopyridine 100 mg Tablet 200 MG PO ×3 (06:18→21:08)
[2021-12-21] MEDS: scopolamine 1.5 Patch 1 PATCH TRANSDERMA (06:19)
[2021-12-21] MEDS: acetaminophen 1,000 MG/100 ML PIGGYBACK 400 MG IV (06:27)
[2021-12-21] MEDS: sodium chloride 0.9% 1,000 ML 30 ML IV (06:27)
--- NOTE | 2021-12-21 06:32 | ANES.PREANE2 ---
Pre-Anesthetic Assessment Height/Weight: Height 1.65 m Weight 75.75 kg Temp Pulse Resp BP Pulse Ox O2 Del Method 98.0 F 92 18 133/78 100 12/21/21 06:09 12/21/21 06:09 12/21/21 06:09 12/21/21 06:09 12/21/21 06:09 12/21/21 06:09 Preop Diagnosis: uterine prolapse Operation Date: 12/21/21 07:00 Proposed Procedures p Laparoscopic assisted vaginal hysterectomy, bilateral salpingectomy [id number]<N81.4(Not Applicable) - Joanna Valles MD s Salpingectomy(Bilateral) - Joanna Valles MD Familial anesthetic complications: None Was Beta Bo taken within 24 hours: N/A Was Clonidine taken within 24 hours: N/A Last intake: Intake Last Liquid Date 12/20/21 Last Liquid Time 21:00 Last Solid Date 12/20/21 Last Solid Time 19:00 Social No alcohol and No tobacco Exam alert, oriented x 3, clear to auscultation bilaterally and regular rate & rhythm Airway Submandibular: within normal limits Cervical ROM: within normal limits Mallampati: Class I Dentition: full History/ROS No significant complaints Pulmonary None reported CV/HEM None reported None reported Vaginitis Uterine prolapse Renal calculus Hepatic None reported GI Gastroesophageal Reflux Disease Metabolic Thyroid Disease PCOS Musc/skel Osteoarthritis/DJD Neuropsych Headache Anesthetic Plan ASA status: 2 Anesthesia: Anesthesia Evaluation and General Other: We discussed risk and benefits of general anesthesia including PONV, sore throat (sometimes severe), corneal abrasion, positioning and peripheral nerve injuries, life threatening allergic reaction, post operative ICU admission requiring prolonged intubation, stroke, heart attack, , and rare incidences of recall. Patient consents to proceed with general anesthesia. Risk of > 500 ml blood loss (7ml/kg in children): No Medications/Allergies Home Medications Medication Instructions Recorded Confirmed Last Taken Type ASO Left #1 11/16/20 12/16/21 Unknown Rx ptt supenator #1 11/16/20 12/16/21 Unknown Rx cetirizine 10 mg tablet (All Day 10 mg PO DAILY PRN Allergy Symptoms 02/02/21 12/21/21 12/20/21 History Allergy (cetirizine)) omeprazole 20 mg capsule,delayed 20 mg PO DAILY 02/02/21 12/21/21 12/20/21 History release atwavsqw-jow-vfofq acid 200 1 tab PO DAILY 06/09/21 12/21/21 12/20/21 History mcg-collagen, hydrolyzed 25 mg chew tablet (Women's Multivitamin with Collagen) topiramate 25 mg tablet 25 mg PO DAILY 06/09/21 12/21/21 12/20/21 History duloxetine 30 mg capsule,delayed 30 mg PO DAILY 10/21/21 12/21/21 12/20/21 History release levothyroxine 88 mcg capsule 88 mcg PO DAILY 12/03/21 12/21/21 12/20/21 History ciprofloxacin HCl 500 mg tablet 500 mg PO BID #20 tabs 12/08/21 12/21/21 12/19/21 Rx Allergies Allergy/AdvReac Type Severity Reaction Status Date / Time No Known Allergies Allergy Verified 12/21/21 06:05 Current Medications Generic Name Dose Route Start Last Admin Trade Name Freq PRN Reason Stop Dose Admin Sodium Chloride 1,000 mls @ 30 mls/hr 12/21/21 06:15 12/21/21 06:27 Sodium Chloride 0.9% IV 12/22/21 06:14 30 mls/hr .Q24H ESTER Administration PFSH Anesthesia Medical History GERD (gastroesophageal reflux disease) Hypothyroidism Renal calculus Torsion of left ovary Still has ovary but was surgically reduced Surgical History S/P cholecystectomy S/P dilation and curettage S/P tonsillectomy Status post hysteroscopic polypectomy Status post lumbar laminectomy L4/5 Status post wisdom tooth extraction Family History Father CAD (coronary artery disease) Myocardial infarction age less than 55 Hypertension Heart disease Hypercholesteremia Mother Breast cancer dx age 63 Ovarian cancer dx age 58 Uterine cancer dx age 58 Grandmother Breast cancer Maternal--dx age 30's or 40's Diabetes Maternal Thyroid disease Maternal Grandfather Hypertension Paternal Sister Thyroid disease Denies family history of Colon cancer Stroke Social History Smoking and tobacco status: never smoked Female Reproductive History Date of last menstrual period: 11/17/21 Data Anesthesia : 12/21/21 06:23 12/21/21 06:23 Cardiac Studies: No Data to Display
[2021-12-21] MEDS: midazolam 1 mg/mL INJ 2 mL 2 MG IVP (06:47)
--- NOTE | 2021-12-21 07:02 | W.PM.OPSUD ---
Surgery/Procedure H&P Update DATE OF PROCEDURE: December 21, 2021 DATE H&P PERFORMED: 12/16/21 H&P UPDATE INFORMATION: I have reviewed H&P completed within last 30 days, I have examined patient prior to procedure and No changes to prior documentation PREOP DIAGNOSIS: uterine prolapse PLANNED PROCEDURE: Operation Date: 12/21/21 07:00 Proposed Procedures p Laparoscopic assisted vaginal hysterectomy, bilateral salpingectomy [id number]<N81.4(Not Applicable) - Joanna Valles MD s Salpingectomy(Bilateral) - Joanna Valles MD Related Problem List Diagnoses (1) Uterine prolapse:
[2021-12-21] MEDS: ceFAZolin 2,000 MG in sodium chloride 0.9% (plus) 50 ML 100 MG IV ×3 (07:04→23:07)
[2021-12-21 07:15] LABS: Basophils # 0.1 10^3/uL (0.0-0.1); Basophils % 1.2 %; Eosinophils # 0.2 10^3/uL (0.0-0.8); Hematocrit 40.9 % (37.0-47.0); Hemoglobin 13.7 g/dL (11.5-15.3); Lymphocytes # 1.9 10^3/uL (0.8-4.8); Lymphocytes % 33.2 %; Mean Corpuscular HGB Conc 33.5 g/dL (30.0-36.0); Mean Corpuscular Hemoglobin 28.5 pg (28.0-34.0); Mean Corpuscular Volume 85.2 fl (81-99); Mean Platelet Volume 9.6 fL (7.4-10.4); Monocytes # 0.3 10^3/uL (0.2-0.9); Monocytes % 5.9 %; Neutrophils # 3.19 10^3/uL (1.8-7.7); Neutrophils % 55.4 %; Nucleated Red Blood Cells % 0 %; Platelet Count 384 10^3/cmm (130-400); Red Cell Distribution Width 12.7 % (12.1-15.1); White Blood Count 5.8 10^3/uL (4.0-10.0)
[2021-12-21 07:45] LABS: Anion Gap 14.4 (5-19); Blood Urea Nitrogen 10 mg/dL (6-20); Calcium 9.1 mg/dL (8.5-10.5); Carbon Dioxide 22 mmol/L (22-29); Chloride 108 mmol/L (98-107); Glomerular Filtration Rate 93.6 mL/min (90-130); Glucose 92 mg/dL (65-115); Osmolality Calculated 291 mOsm/kg (285-295); Potassium 3.4 mmol/L (3.5-5.1); Sodium 141 mmol/L (136-145)
[2021-12-21] MEDS: vasopressin 20 unit/mL INJ INJECTION (08:08)
--- NOTE | 2021-12-21 08:11 | SUR.OPER ---
PATIENT POSITIONING PER DR RICH.
--- NOTE | 2021-12-21 09:08 | PM.OP ---
Operative Report Date of procedure: December 21, 2021 Pre-op diagnosis: Preop Diagnosis uterine prolapse Post-op diagnosis: same Post-op findings: 8 week sized uterus. Normal appearing tubes and ovaries Procedure done: LAVH, bilateral salpingectomy Specimens removed/disposition: uterus and bilateral fallopian tubes to pathology Surgeon: Joanna Valles Anesthesia: General Estimated blood loss (mL): 100 IV fluids (mL): 1,000 Urine output (mL): 150 Complications: none Condition: stable Disposition: PACU Procedure: The patient was taken to the operating room where general anesthesia was administered and found to be adequate. She was prepped and draped in the normal sterile fashion in the dorsal lithotomy position in [facility]. A Valdez catheter was placed. A weighted speculum was placed into the vagina and the anterior lip of the cervix was grasped with a single tooth tenaculum. The Zumi uterine manipulator was placed. The weighted speculum was removed. The gloves were changed and attention was turned to the abdomen. A 5 mm supraaumbilical incision was made. Using a 5 mm port with the camera, the port was placed into the abdomen. The abdomen was insufflated. Two low, lateral 5 mm ports were placed on the left and right under direct visualization from the camera. The right tube was grasped and elevated. Using the laparoscopic cautery, the mesosalpinx was divided between the ovary and tube. This was performed the same way on the left. The uteroovarian ligaments as well as the round ligaments were ligated. Attention was then turned to the vaginal portion of the procedure. The weighted speculum was placed into the vagina. The zumi manipulator was removed. The single tooth tenaculum was removed and replaced with the nick's tenaculum. 10 mL of dilute Pitressin was injected at the vesicovaginal junction. A circumferential incision was made at the vesicovaginal junction and the vaginal mucosa reflected cephalad. The posterior peritoneum was entered sharply with the Metzenbaum scissors and the long weighted speculum replaced. Using the Kristina clamps the uterosacral ligaments were clamped cut and suture-ligated. The anterior peritoneum was entered sharply with the metzenbaum scissors. Then sequentially the uterine arteries and cardinal ligaments were clamped cut and suture-ligated. A single-tooth tenaculum was used to deliver the uterus. The remaining segement of the utero-ovarian ligaments were clamped cut and suture-ligated bilaterally and the specimen was removed. There was good hemostasis with only mild bleeding from the cuff. The peritoneum was closed with a pursestring using 2-0 Vicryl. The vaginal cuff was closed with 0 Vicryl in a running locked pattern incorporating the uterosacral ligaments into the lateral aspects of the vaginal cuff. The Valdez catheter was removed and the cystoscope advanced into the bladder. The patient was given pyridium and bilateral spill was noted. There were no injuries or deficits noted in the bladder. The cystoscope was removed and the Valdez was replaced. Vaginal packing was placed for good hemostasis. The gloves and gowns were changed and attention was turned to the abdomen. The ports were closed with 2-0 monocryl with skin glue. The patient tolerated the procedure well. Sponge lap and needle counts were correct x3. She was taken to the recovery room in stable condition.
--- NOTE | 2021-12-21 09:29 | SUR.PHASEI ---
patient brought into pacu with oral airway in place and simple mask at 8L O2 and sats at 93%. Patient has 3 trocar sites, dermabond to each dry and intact. denny in place. stat lock placed to right thigh. no bleeding noted. no pain per faces.
--- NOTE | 2021-12-21 09:56 | SUR.PHASEI ---
patient wakes to remove oral airway. patient still has simple mask in place. sats at 98%. no pain per faces.
--- NOTE | 2021-12-21 09:59 | SUR.PHASEI ---
patient wakes but still very sleepy. simple mask removed. pt sat on room air at 99%.
--- NOTE | 2021-12-21 10:19 | SUR.PHASEI ---
patient has been very hard to wake up, is still very drowsy. taking ice chips well. patient states a little pain . plan to transfer patient to OB for further po pain meds due to how long it took her to wake up initially.
[2021-12-21] MEDS: HYDROcodone-acetaminophen 5-325 mg Tablet PO (14:13)
--- NOTE | 2021-12-21 14:50 | ANE.PACU2 ---
Inpatient post-anesthesia follow up: Airway intact: Yes Vital signs: Temperature 97.9 F Pulse Rate 67 Respiratory Rate 16 Blood Pressure 104/64 Pulse Oximetry 94 Oxygen Delivery Me thod Room Air Oxygen Flow Rate 8 Fraction of Inspir ed Oxygen Hydration adequate: Yes Nausea and vomiting: No Pain level: 4 Mental status: Baseline
[2021-12-21] MEDS: ketorolac 30 mg/mL INJ IVP ×2 (15:18→21:08)
[2021-12-21] MEDS: dextrose 5%-lactated ringers 1,000 ML 125 ML IV (16:55)
[2021-12-21] MEDS: simethicone 80 mg Chew PO (17:15)
[2021-12-21] MEDS: docusate sodium 100 mg Capsule PO (17:15)
[2021-12-21] MEDS: topiramate 25 mg Tablet PO (21:08)
[2021-12-21] MEDS: alum-mag-hydroxide-sime 30 mL UDC PO (21:28)
[2021-12-22] MEDS: dextrose 5%-lactated ringers 1,000 ML 125 ML IV (01:30)
[2021-12-22 05:30] VITALS: BP 111/71; PULSE 55; TEMP 36.7; O2SAT 98
[2021-12-22 05:46] LABS: Hematocrit 32.7 % (37.0-47.0); Hemoglobin 10.9 g/dL (11.5-15.3); Mean Corpuscular HGB Conc 33.3 g/dL (30.0-36.0); Mean Corpuscular Hemoglobin 28.9 pg (28.0-34.0); Mean Corpuscular Volume 86.7 fl (81-99); Mean Platelet Volume 10.3 fL (7.4-10.4); Platelet Count 361 10^3/cmm (130-400); Red Blood Count 3.77 10^6/uL (4.1-5.3); Red Cell Distribution Width 12.9 % (12.1-15.1); White Blood Count 11.9 10^3/uL (4.0-10.0)
--- NOTE | 2021-12-22 06:01 | PC.NURSE ---
This nurse removed pts vaginal packing @5995 on 12/22/21
--- NOTE | 2021-12-22 09:00 | P.DS_ITS ---
Discharge Providers Date of Admission: 12/21/21 09:04 Date of Discharge: December 22, 2021 Attending Provider at Admission: Joanna Valles MD Attending Provider at Discharge: Joanna Valles MD Primary Care Provider: Ami Urbano MD Diagnoses at Discharge Discharge Diagnosis (1) Uterine prolapse: Status: Acute Hospital Course Hospital Course The patient was admitted for surgery. She did well postoperatively and was ready for discharge on day #1 Physical Exam Narrative: The patient has no concerns today Const: COMMON NORMALS: no acute distress, average body habitus, patient oriented x3, no limitations, healthy appearing, alert and well nourished GENERAL APPEARANCE: cooperative, comfortable, well kempt and well developed ORIENTATION/CONSCIOUSNESS: Yes awake, Yes oriented to person, Yes oriented to place and Yes oriented to time Resp: COMMON NORMALS: normal respiratory effort EFFORT & INSPECTION: Yes able to speak in complete sentences GI: COMMON NORMALS: Soft to palpation and non-tender PALPATION: Yes Soft to palpation Extremity: COMMON NORMALS: no calf tenderness Neuro: COMMON NORMALS: patient oriented x3 SENSORIUM/ORIENTATION: Yes alert, Yes oriented to person, Yes oriented to place and Yes oriented to time Psych: APPEARANCE: Yes well kempt Urinary Catheter Management: Valdez: Cath Placed During This Visit: yes, but has since been removed by the nurse Reason for Continuing Indwelling Catheter: Decision to DC Catheter Urinary Catheter Date of Insertion: 12/21/21 Urinary Catheter Time of Insertion: 07:37 Date Urinary Catheter Removed: 12/22/21 Time Urinary Catheter Discontinued: 05:30 Discharge Data Studies Completed and Pending Pending at discharge Category Date Time Status ES surgery / GI images Routine Exams 12/21/21 06:45 Taken Urine Culture Routine Lab 12/21/21 07:40 Received Pathology: Surgical [PTH] Routine Pth 12/21/21 09:23 Received Laboratory Results WBC 11.9 10^3/uL (4.0-10.0) H 12/22/21 05:40 RBC 3.77 10^6/uL (4.1-5.3) L 12/22/21 05:40 Hgb 10.9 g/dL (11.5-15.3) L 12/22/21 05:40 Hct 32.7 % (37.0-47.0) L 12/22/21 05:40 MCV 86.7 fl (81-99) 12/22/21 05:40 MCH 28.9 pg (28.0-34.0) 12/22/21 05:40 MCHC 33.3 g/dL (30.0-36.0) 12/22/21 05:40 RDW 12.9 % (12.1-15.1) 12/22/21 05:40 Plt Count 361 10^3/cmm (130-400) 12/22/21 05:40 MPV 10.3 fL (7.4-10.4) 12/22/21 05:40 Neut % (Auto) 55.4 % 12/21/21 06:23 Lymph % (Auto) 33.2 % 12/21/21 06:23 [place] % (Auto) 5.9 % 12/21/21 06:23 Eos % (Auto) 4.0 % 12/21/21 06:23 Baso % (Auto) 1.2 % 12/21/21 06:23 Neut # (Auto) 3.19 10^3/uL (1.8-7.7) 12/21/21 06:23 Lymph # (Auto) 1.9 10^3/uL (0.8-4.8) 12/21/21 06:23 [place] # (Auto) 0.3 10^3/uL (0.2-0.9) 12/21/21 06:23 Eos # (Auto) 0.2 10^3/uL (0.0-0.8) 12/21/21 06:23 Baso # (Auto) 0.1 10^3/uL (0.0-0.1) 12/21/21 06:23 Nucleated RBC % (auto) 0 % 12/21/21 06:23 Nucleated RBCs # 0.0 /100WBC 12/21/21 06:23 Sodium 141 mmol/L (136-145) 12/21/21 06:23 Potassium 3.4 mmol/L (3.5-5.1) L 12/21/21 06:23 Chloride 108 mmol/L (98-107) H 12/21/21 06:23 Carbon Dioxide 22 mmol/L (22-29) 12/21/21 06:23 Anion Gap 14.4 (5-19) 12/21/21 06:23 BUN 10 mg/dL (6-20) 12/21/21 06:23 Creatinine 0.7 mg/dL (0.5-0.9) 12/21/21 06:23 GFR Calculation 93.6 mL/min (90-130) 12/21/21 06:23 Glucose 92 mg/dL (65-115) 12/21/21 06:23 Calculated Osmolality 291 mOsm/kg (285-295) 12/21/21 06:23 Calcium 9.1 mg/dL (8.5-10.5) 12/21/21 06:23 Urine HCG, Qual Negative (Negative) 12/21/21 06:16 Blood Type O Positive 12/21/21 06:23 Rho(D) Type Positive 12/21/21 06:23 Antibody Screen Negative 12/21/21 06:23 Vitals Last Vital Signs Temp 98.0 F 12/22/21 05:30 Pulse 55 L 12/22/21 05:30 Resp 17 12/21/21 22:00 BP 111/71 12/22/21 05:30 Pulse Ox 98 12/22/21 05:30 O2 Del Method 12/22/21 05:30 O2 Flow Rate 8 12/22/21 08:00 Discharge Plan Discharge Patient Disposition: Home Condition: Stable Prescriptions: New ibuprofen 800 mg Tablet 800 mg PO Q8H Qty: 30 0RF hydrocodone-acetaminophen 5-325 mg Tablet 1 tab PO Q4H PRN (Reason: Moderate To Severe Pain) Qty: 30 0RF docusate sodium 100 mg Capsule 100 mg PO BID Qty: 60 0RF Continued (DME) ASO Left See Rx Instructions .ROUTE .MEDSUPPLY Qty: 1 0RF Rx Instructions: As directed (DME) ptt supenator See Rx Instructions .Route .MEDSUPPLY Qty: 1 0RF Rx Instructions: As directed cetirizine [All Day Allergy (cetirizine)] 10 mg tablet 10 mg PO DAILY PRN (Reason: Allergy Symptoms) omeprazole 20 mg capsule,delayed release(DR/EC) 20 mg PO DAILY topiramate 25 mg tablet 25 mg PO DAILY Women's Multivitamin Collagen 200 mcg- 25 mg tablet,chewable 1 tab PO DAILY levothyroxine 88 mcg capsule 88 mcg PO DAILY duloxetine 30 mg capsule,delayed release(DR/EC) 30 mg PO DAILY ciprofloxacin HCl 500 mg tablet 500 mg PO BID Qty: 20 0RF Discharge Orders: Discharge Order (Routine); Ordered 12/22/21 Ordered By: Joanna Valles Referrals: Joanna Valles MD [Physician] - (1 week incision check 12/29/2021 at 9:30am 6 week follow up appointment 01/31/2022 at 8:45am) Patient Instructions: Hysterectomy (DC), OB Abdominal Surgery - [facility], OB Anesthesia Instructions, Opioid Safety Discharge Attestations Time Spent in Discharge Care*: less than 30 min Status at Discharge: Cognitive status at discharge: cognitively intact , Behavioral status at discharge: cooperative , Quality Metrics Clinical Quality Measures [ No reported AMI, CVA or VTE this stay] Coding Level of Care Code Acute Chg FW DC note Diagnoses Uterine prolapse N81.4
[2021-12-22] MEDS: ibuprofen 800 mg tablet PO (09:35)
[2021-12-22] MEDS: topiramate 25 mg Tablet PO (09:36)
[2021-12-22] MEDS: duloxetine 30 mg Capsule PO (09:36)
[2021-12-22] MEDS: docusate sodium 100 mg Capsule PO (09:36)
[2021-12-22] MEDS: HYDROcodone-acetaminophen 5-325 mg Tablet PO (09:37)
[2021-12-22] MEDS: levothyroxine 88 mcg Tablet PO (09:37)
[2021-12-22] MEDS: phenazopyridine 100 mg Tablet 200 MG PO (09:37)
[2021-12-22 09:38] VITALS: BP 118/81; PULSE 75; RESP 17; TEMP 36.7; O2SAT 100
[2021-12-22 10:00] VITALS: BP 118/81; PULSE 75; RESP 17; TEMP 36.7; O2SAT 100
== END 2021-12-22 09:45 | disposition home or self-care (01) ==
LOC: OBGYN 09:04
PROVIDERS: Admitting Provider Obstetrics & Gynecology; PCP Internal Medicine; Visit Provider Obstetrics & Gynecology
PROC: 0UT9FZZ Resection of Uterus, Via Natural or Artificial Opening With Percutaneous Endoscopic Assistance (ICD-10-PCS; CPT 58554; principal; 2021-12-21 07:00)
PROC: (CPT 58700; 2021-12-21 07:00)
DX: N81.3 Complete uterovaginal prolapse (principal); N88.8 Other specified noninflammatory disorders of cervix uteri; K21.9 Gastro-esophageal reflux disease without esophagitis; E03.9 Hypothyroidism, unspecified
CPT/HCPCS: 58554; 36415; 80048; 81025; 84703; 85025; 85027; 86850; 86900; 87086; 88305; G0378; J1100; J1170; J1200; J1885; J1940; J2250; J2405; J2704; J2710; J3010; J3490; J7030

== ENCOUNTER 2022-01-04 11:36 | Day surgery (SDC) | payer MEDICAID, SELFPAY ==
[2022-01-03 10:12] VITALS: BMI 28.3
[2022-01-04] VITALS (10 sets, daily range): BP systolic 114–151; BP diastolic 70–97; PULSE 59–91; RESP 13–20; TEMP 36.3–36.7; O2SAT 94–100
[2022-01-04] MEDS: sodium chloride 0.9% 1,000 ML 30 ML IV (12:08)
[2022-01-04] MEDS: acetaminophen 1,000 MG/100 ML PIGGYBACK 400 MG IV (12:09)
[2022-01-04] MEDS: CELEcoxib 200 mg Capsule 400 MG PO (12:10)
[2022-01-04] MEDS: gabapentin 300 mg Capsule PO (12:10)
--- NOTE | 2022-01-04 12:10 | ANES.PREANE2 ---
Pre-Anesthetic Assessment Height/Weight: Height 1.65 m Weight 77.111 kg Temp Pulse Resp BP Pulse Ox O2 Del Method 97.6 F 74 16 149/97 100 01/04/22 11:56 01/04/22 11:56 01/04/22 11:56 01/04/22 11:56 01/04/22 11:56 01/04/22 11:56 Preop Diagnosis: shortened perineal body Operation Date: 01/04/22 13:10 Proposed Procedures p Perineorrhaphy 49859,N81.89(Not Applicable) - Joanna Valles MD Familial anesthetic complications: None Was Beta Bo taken within 24 hours: N/A Was Clonidine taken within 24 hours: N/A Last intake: Intake Last Liquid Date 01/03/22 Last Liquid Time 21:00 Last Solid Date 01/03/22 Last Solid Time 21:00 Social No alcohol and No tobacco Exam alert, oriented x 3, clear to auscultation bilaterally and regular rate & rhythm Airway Submandibular: within normal limits Cervical ROM: within normal limits Mallampati: Class I Dentition: full History/ROS No significant complaints Pulmonary None reported CV/HEM None reported None reported Uterine prolapse PCOS Hepatic None reported GI Gastroesophageal Reflux Disease Metabolic Thyroid Disease [facility] None reported Neuropsych None reported Anesthetic Plan ASA status: 2 Anesthesia: Anesthesia Evaluation, General and MAC Other: We discussed risk and benefits of general anesthesia including PONV, sore throat (sometimes severe), corneal abrasion, positioning and peripheral nerve injuries, life threatening allergic reaction, post operative ICU admission requiring prolonged intubation, aspiration, stroke, heart attack, , and rare incidences of recall. I discussed with the patient risks, goals, and benefits of MAC and general anesthesia. We discussed spectrum of MAC anesthesia including conversion to general as well as possibility of recall of intraoperative stimuli including discomfort/pain. Patient consents to MAC or General pending further discussion with surgeon. Risk of > 500 ml blood loss (7ml/kg in children): No Medications/Allergies Home Medications Medication Instructions Recorded Confirmed Last Taken Type ASO Left #1 ea 11/16/20 12/29/21 Unknown Rx ptt supenator #1 11/16/20 12/29/21 Unknown Rx cetirizine 10 mg tablet (All Day 10 mg PO DAILY PRN Allergy Symptoms 02/02/21 01/04/22 01/03/22 History Allergy (cetirizine)) omeprazole 20 mg capsule,delayed 20 mg PO DAILY 02/02/21 01/04/22 01/03/22 History release yyyctked-mam-iosgp acid 200 1 tab PO DAILY 06/09/21 01/04/22 01/03/22 History mcg-collagen, hydrolyzed 25 mg chew tablet (Women's Multivitamin with Collagen) topiramate 25 mg tablet 25 mg PO DAILY 06/09/21 01/04/22 01/03/22 History duloxetine 30 mg capsule,delayed 30 mg PO DAILY 10/21/21 01/04/22 01/03/22 History release (Cymbalta) levothyroxine 88 mcg capsule 88 mcg PO DAILY 12/03/21 01/04/22 01/03/22 History hydrocodone 5 mg-acetaminophen 325 1 tab PO Q4H PRN Moderate To 12/22/21 01/03/22 Unknown Rx mg tablet Severe Pain #30 tabs ibuprofen 800 mg tablet 800 mg PO Q8H #30 tabs 12/22/21 01/03/22 Unknown Rx triamcinolone acetonide 0.5 % 1 applic topical QID PRN red itchy 12/31/21 01/03/22 Unknown Rx topical cream rash #15 grams Allergies Allergy/AdvReac Type Severity Reaction Status Date / Time skin glue Allergy ALGY-Rash Uncoded 01/03/22 10:08 Current Medications Generic Name Dose Route Start Last Admin Trade Name Freq PRN Reason Stop Dose Admin Sodium Chloride 1,000 mls @ 30 mls/hr 01/04/22 12:15 01/04/22 12:08 Sodium Chloride 0.9% IV 30 mls/hr .Q24H ESTER Administration PFSH Anesthesia Medical History GERD (gastroesophageal reflux disease) Hypothyroidism Renal calculus Torsion of left ovary Still has ovary but was surgically reduced Uterine prolapse Surgical History S/P cholecystectomy S/P dilation and curettage S/P tonsillectomy Status post hysteroscopic polypectomy Status post lumbar laminectomy L4/5 Status post wisdom tooth extraction Family History Father CAD (coronary artery disease) Myocardial infarction age less than 55 Hypertension Heart disease Hypercholesteremia Mother Breast cancer dx age 63 Ovarian cancer dx age 58 Uterine cancer dx age 58 Grandmother Breast cancer Maternal--dx age 30's or 40's Diabetes Maternal Thyroid disease Maternal Grandfather Hypertension Paternal Sister Thyroid disease Denies family history of Colon cancer Stroke Social History Smoking and tobacco status: former smoker Female Reproductive History Date of last menstrual period: 11/17/21 Data Anesthesia Cardiac Studies: No Data to Display
[2022-01-04] MEDS: ketorolac 30 mg/mL INJ IVP (12:11)
--- NOTE | 2022-01-04 12:50 | W.PM.OPSUD ---
Surgery/Procedure H&P Update DATE OF PROCEDURE: January 04, 2022 DATE H&P PERFORMED: 12/29/21 H&P UPDATE INFORMATION: I have reviewed H&P completed within last 30 days, I have examined patient prior to procedure and No changes to prior documentation PREOP DIAGNOSIS: shortened perineal body PLANNED PROCEDURE: Operation Date: 01/04/22 13:10 Proposed Procedures p Perineorrhaphy 01178,N81.89(Not Applicable) - Joanna Valles MD Related Problem List Diagnoses (1) Loss of perineal body, female:
[2022-01-04] MEDS: ceFAZolin 2,000 MG in sodium chloride 0.9% (plus) 50 ML 100 MG IV (13:20)
--- NOTE | 2022-01-04 13:57 | P.OP_ITS ---
Operative Report Date of procedure: January 04, 2022 Pre-op diagnosis: Preop Diagnosis shortened perineal body Post-op diagnosis: same Post-op findings: normal appearing perineum Procedure done: perineorrhaphy Surgeon: Joanna Valles Anesthesia: MAC Estimated blood loss (mL): 20 IV fluids (mL): 800 Complications: none Condition: stable Disposition: PACU Procedure: The patient was taken to the operating room, where monitored anesthesia was administered and found to be adequate. She was prepped and draped in the normal sterile fashion in the dorsal lithotomy position in [facility]. Attention was then turned to the perineorrhphy. Allis clamps were placed on the posterior fourchette. A 3 cm wedge of the fourchette was removed. This was repaired in the usual fashion with O-vicryl. Vaginal packing was placed. The patient tolerated the procedure well. Sponge, lap and needle counts were correct times three. She was taken to the recovery room in stable condition. Packing will be removed prior to discharge.
--- NOTE | 2022-01-04 14:04 | P.DS_ITS ---
Discharge Providers Date of Admission: 01/04/22 Date of Discharge: January 04, 2022 Attending Provider at Discharge: Joanna Valles MD Primary Care Provider: Ami Urbano MD Diagnoses at Discharge Discharge Diagnosis (1) Loss of perineal body, female: Status: Acute Hospital Course Hospital Course The patient was admitted for surgery. She did well postoperatively and was lana dy for discharge. Discharge Data Vitals Last Vital Signs Temp 97.6 F 01/04/22 11:56 Pulse 74 01/04/22 11:56 Resp 16 01/04/22 11:56 BP 149/97 01/04/22 11:56 Pulse Ox 100 01/04/22 11:56 O2 Del Method 01/04/22 11:56 Discharge Plan Discharge Patient Disposition: Home Condition: Stable Prescriptions: New ibuprofen 800 mg tablet 800 mg PO Q8H Qty: 40 0RF hydrocodone-acetaminophen 5-325 mg tablet 1 tab PO Q6H PRN (Reason: pain) Qty: 30 0RF Continued (DME) ASO Left See Rx Instructions .ROUTE .MEDSUPPLY Qty: 1 0RF Rx Instructions: As directed (DME) ptt supenator See Rx Instructions .Route .MEDSUPPLY Qty: 1 0RF Rx Instructions: As directed cetirizine [All Day Allergy (cetirizine)] 10 mg tablet 10 mg PO DAILY PRN (Reason: Allergy Symptoms) omeprazole 20 mg capsule,delayed release(DR/EC) 20 mg PO DAILY topiramate 25 mg tablet 25 mg PO DAILY Rx Instructions: 25 mg in am, 50 pm Women's Multivitamin Collagen 200 mcg- 25 mg tablet,chewable 1 tab PO DAILY levothyroxine 88 mcg capsule 88 mcg PO DAILY duloxetine [Cymbalta] 30 mg capsule,delayed release(DR/EC) 30 mg PO DAILY triamcinolone acetonide 0.5 % cream 1 applic topical QID PRN (Reason: red itchy rash) Qty: 15 0RF ibuprofen 800 mg Tablet 800 mg PO Q8H Qty: 30 0RF hydrocodone-acetaminophen 5-325 mg Tablet 1 tab PO Q4H PRN (Reason: Moderate To Severe Pain) Qty: 30 0RF Discharge Orders: Discharge Order (Routine); Ordered 01/04/22 Ordered By: Joanna Valles Discharge Attestations Time Spent in Discharge Care*: less than 30 min Status at Discharge: Cognitive status at discharge: cognitively intact , Behavioral status at discharge: cooperative , Quality Metrics Clinical Quality Measures [ No reported AMI, CVA or VTE this stay] Coding Level of Care Code Acute Chg FW DC note Diagnoses Loss of perineal body, female N81.89
[2022-01-04] MEDS: fentaNYL 50 mcg/mL INJ 2mL IVP (14:17)
[2022-01-04] MEDS: HYDROcodone-acetaminophen 5-325 mg Tablet 1 TAB PO (15:02)
--- NOTE | 2022-01-04 15:46 | ANE.PACU2 ---
Inpatient post-anesthesia follow up: Airway intact: Yes Vital signs: Temperature 98.1 F Pulse Rate 75 Respiratory Rate 16 Blood Pressure 136/88 Pulse Oximetry 100 Oxygen Delivery Me thod Room Air Oxygen Flow Rate Fraction of Inspir ed Oxygen Hydration adequate: Yes Nausea and vomiting: No Pain level: 1 Mental status: Baseline
== END 2022-01-04 15:17 | disposition home or self-care (01) ==
PROVIDERS: PCP Internal Medicine; Visit Provider Obstetrics & Gynecology
PROC: 0HQ9XZZ Repair Perineum Skin, External Approach (ICD-10-PCS; CPT 56810; principal; 2022-01-04 13:00)
DX: N81.89 Other female genital prolapse (principal); E28.2 Polycystic ovarian syndrome; K21.9 Gastro-esophageal reflux disease without esophagitis; E03.9 Hypothyroidism, unspecified; Z87.891 Personal history of nicotine dependence
CPT/HCPCS: 56810; J1885; J2250; J2704; J3010; J7030

== ENCOUNTER 2022-01-15 09:36 | Emergency (ER) | payer MEDICAID, SELFPAY ==
[2022-01-15 09:41] VITALS: BP 151/98; PULSE 97; RESP 16; TEMP 36.8; O2SAT 99; BMI 28.3
[2022-01-15 10:08] VITALS: BP 148/96; PULSE 86; RESP 18; O2SAT 98
--- NOTE | 2022-01-15 10:15 | ED_ITS ---
HPI - Female Genitourinary General: Chief complaint: Vaginal Bleeding Stated complaint: Post op bleeding Time Seen by Provider: 01/15/22 09:37 Source: patient Mode of arrival: ambulatory History of Present Illness: 36-year-old female presents emergency room with complaint of vaginal bleeding. Earlier this year in November she had a lap assisted vaginal hysterectomy. After this she had a perineal body reconstruction. This was done earlier this month. This morning she had a significant amount of blood she was concerned it was from vaginal source. She denies any dysuria urgency or frequency. Flank pain no fever sweats or chills. MD elicited complaint: vaginal bleeding Onset (ago): minute(s) Severity: mild Vaginal bleeding: moderate (Single episode) Exacerbating factors: none Relieving factors: none Associated symptoms: Reports vaginal bleeding; Deny abdominal pain, short of breath, fevers/chills, headache(s), nausea, rash, seizures, syncope, vaginal discharge or weakness Treatment prior to arrival: none Sexual activity: No Patient : No (Hysterectomy) Date of Last Menstrual Period: 11/17/21 Review of Systems Const: Denies: fever(s), chills, body aches, change in appetite, fatigue or malaise Card: Denies: syncope Resp: Denies: dyspnea, productive cough or non-productive cough GI: Denies: abdominal pain or nausea : Denies: vaginal discharge Neuro: Denies: headache(s) PFSH ED PFSH: Medical History GERD (gastroesophageal reflux disease) Hypothyroidism Loss of perineal body, female Renal calculus Torsion of left ovary Still has ovary but was surgically reduced Uterine prolapse Surgical History S/P cholecystectomy S/P dilation and curettage S/P tonsillectomy Status post hysteroscopic polypectomy Status post lumbar laminectomy L4/5 Status post wisdom tooth extraction Family History Father CAD (coronary artery disease) Myocardial infarction age less than 55 Hypertension Heart disease Hypercholesteremia Mother Breast cancer dx age 63 Ovarian cancer dx age 58 Uterine cancer dx age 58 Grandmother Breast cancer Maternal--dx age 30's or 40's Diabetes Maternal Thyroid disease Maternal Grandfather Hypertension Paternal Sister Thyroid disease Denies family history of Colon cancer Stroke Social History Smoking and tobacco status: former smoker Female Reproductive History: Date of last menstrual period: 11/17/21 Physical Exam Const: COMMON NORMALS: no acute distress GENERAL APPEARANCE: cooperative and comfortable ORIENTATION/CONSCIOUSNESS: Yes awake, Yes oriented to person, Yes oriented to place and Yes oriented to time HENMT: COMMON NORMALS: normocephalic, atraumatic and hearing grossly normal bilaterally HEAD & SCALP: normocephalic and atraumatic : SPECULUM EXAM - VAGINA: Yes vaginal bleeding OB/EXTERNAL & SPECULUM: vaginal bleeding OTHER: Patient placed in dorsolithotomy position perineum examined there is some exposed what appeared to be Vicryl sutures but no active bleeding no dried blood or evidence of blood at that incision. Examination of the rectum there is a noninflamed rectal hemorrhoid with no bleeding at the anal verge. Speculum introduced but with the blades of the speculum were not opened. Examined the vaginal vault to the plastic speculum there is no blood within the vaginal vault I could see the edges of the vaginal cuff there is no evidence of dehiscence at this time and no evidence of blood or having had any bleeding. Neuro: SENSORIUM/ORIENTATION: Yes oriented to person, Yes oriented to place and Yes oriented to time Course Vital Signs: Vital signs: Vital Signs Temperature 98.3 F 01/15/22 09:41 Pulse Rate 86 01/15/22 10:08 Respiratory Rate 18 01/15/22 10:08 Blood Pressure 148/96 01/15/22 10:08 Pulse Oximetry 98 01/15/22 10:08 Oxygen Delivery Me thod 01/15/22 10:08 MDM - Female Medical Decision Making Suspect it is blood that evacuated from subcu space at the incision where some of the wound has dehisced and the stay stitches are apparent. No active bleeding now. Discharge home pelvic rest follow-up with Dr. Valles on Monday. If she has recurrence of bleeding or persistent bleeding return to the emergency room. Medical Records I reviewed the patient's medical records. Lab Data I reviewed the patient's lab results. Laboratory Results Urine Color Yellow (Yellow) 01/15/22 10:02 Urine Appearance Cloudy (CLEAR) 01/15/22 10:02 Urine pH 7 (5-7) 01/15/22 10:02 Ur Specific Muir 1.005 (1.005-1.030) 01/15/22 10:02 Urine Protein Neg (Negative) 01/15/22 10:02 Urine Glucose (UA) Norm (Normal) 01/15/22 10:02 Urine Ketones Negative (Negative) 01/15/22 10:02 Urine Blood 3+ (Negative) H 01/15/22 10:02 Urine Nitrate Negative (Negative) 01/15/22 10:02 Urine Bilirubin Neg (Negative) 01/15/22 10:02 Urine Urobilinogen Neg mg/dL (Negative) 01/15/22 10:02 Ur Leukocyte Esterase Trace (Negative) H 01/15/22 10:02 Amorphous Sediment Not Reportable 01/15/22 10:02 Discharge Plan Discharge Patient Disposition: Home Clinical Impression: H/O vaginal surgery Condition: Stable Prescriptions: No Action (DME) ASO Left See Rx Instructions .ROUTE .MEDSUPPLY Qty: 1 0RF Rx Instructions: As directed (DME) ptt supenator See Rx Instructions .Route .MEDSUPPLY Qty: 1 0RF Rx Instructions: As directed cetirizine [All Day Allergy (cetirizine)] 10 mg tablet 10 mg PO DAILY PRN (Reason: Allergy Symptoms) omeprazole 20 mg capsule,delayed release(DR/EC) 20 mg PO DAILY topiramate 25 mg tablet 25 mg PO DAILY Rx Instructions: 25 mg in am, 50 pm Women's Multivitamin Collagen 200 mcg- 25 mg tablet,chewable 1 tab PO DAILY levothyroxine 88 mcg capsule 88 mcg PO DAILY duloxetine [Cymbalta] 30 mg capsule,delayed release(DR/EC) 30 mg PO DAILY triamcinolone acetonide 0.5 % cream 1 applic topical QID PRN (Reason: red itchy rash) Qty: 15 0RF metronidazole 500 mg tablet 500 mg PO BID 7 Days Qty: 14 0RF ibuprofen 800 mg tablet 800 mg PO Q8H Qty: 40 0RF hydrocodone-acetaminophen 5-325 mg tablet 1 tab PO Q6H PRN (Reason: pain) Qty: 30 0RF Discharge Orders: Discharge ED (Routine); Ordered 01/15/22 Ordered By: Martín Elizabeth Referrals: Ami Urbano MD [Primary Care Provider] - Discharge Diet: Usual diet Discharge Activity: Resume usual activity Patient Instructions: Opioid Safety, Pain Management Activity Restrictions/Additional Instructions: Follow-up with Dr. Valles on Monday. Return to the emergency room if you have significant bleeding. Coding Level of Care Code ED Clinical Sociologist for Chg Fwd Exam Expanded Problem Focused
[2022-01-15 10:22] LABS: Add Urine Microscopic? YES; Bilirubin Urine Neg (Negative); Blood Urine 3+ (Negative); Glucose Urine UA Norm (Normal); Ketones Urine Negative (Negative); Leukocyte Esterase Urine Trace (Negative); Nitrate Urine Negative (Negative); Protein Urine Neg (Negative); Specific Gravity, Urine 1.005 (1.005-1.030); Urine Appearance Cloudy (CLEAR); Urine Color Yellow (Yellow); Urobilinogen Urine Neg (Negative); pH Urine 7 (5-7)
[2022-01-15 10:27] LABS: Basophils # 0.1 10^3/uL (0.0-0.1); Basophils % 1.5 %; Eosinophils # 0.5 10^3/uL (0.0-0.8); Eosinophils % 7.9 %; Hematocrit 40.2 % (37.0-47.0); Hemoglobin 12.9 g/dL (11.5-15.3); Lymphocytes # 1.6 10^3/uL (0.8-4.8); Lymphocytes % 27.4 %; Mean Corpuscular HGB Conc 32.1 g/dL (30.0-36.0); Mean Corpuscular Hemoglobin 28.2 pg (28.0-34.0); Mean Corpuscular Volume 87.8 fl (81-99); Mean Platelet Volume 9.1 fL (7.4-10.4); Monocytes # 0.4 10^3/uL (0.2-0.9); Monocytes % 6.3 %; Neutrophils # 3.29 10^3/uL (1.8-7.7); Neutrophils % 56.6 %; Nucleated Red Blood Cells % 0 %; Platelet Count 364 10^3/cmm (130-400); Red Blood Count 4.58 10^6/uL (4.1-5.3); Red Cell Distribution Width 13.9 % (12.1-15.1); White Blood Count 5.8 10^3/uL (4.0-10.0)
[2022-01-15 10:30] LABS: Add Urine Culture? No; RBC Urine 0-4 /hpf (0-2)
== END 2022-01-15 10:32 | disposition home or self-care (01) ==
PROVIDERS: Emergency Provider Family Medicine; PCP Internal Medicine
DX: N93.9 Abnormal uterine and vaginal bleeding, unspecified (principal); E03.9 Hypothyroidism, unspecified; Z87.891 Personal history of nicotine dependence; Z90.710 Acquired absence of both cervix and uterus
CPT/HCPCS: 36415; 81001; 85025; 99284; E0352

== ENCOUNTER 2022-03-02 12:00 | Outpatient (CLI) | payer MEDICAID, SELFPAY | END 2022-03-02 12:01 | disposition home or self-care (01) | LOC: SLEEP 03-03 17:03 | PROVIDERS: PCP Internal Medicine; Visit Provider Internal Medicine | DX: G47.10 Hypersomnia, unspecified (principal) | CPT/HCPCS: G0399 ==

== ENCOUNTER 2022-03-07 12:44 | Outpatient (CLI) | payer MEDICAID, SELFPAY | END 2022-03-07 12:45 | disposition home or self-care (01) | LOC: RT 12:45 | PROVIDERS: PCP Internal Medicine; Visit Provider Internal Medicine | DX: R06.02 Shortness of breath (principal) | CPT/HCPCS: 94010 ==

== ENCOUNTER → 2022-04-28 11:00 | Outpatient (BNVA) | payer MEDICAID, SELFPAY | PROVIDERS: PCP Internal Medicine; Visit Provider Obstetrics & Gynecology | DX: R53.83 Other fatigue (principal); R63.5 Abnormal weight gain | CPT/HCPCS: 83001; 83002; 84443 ==

== ENCOUNTER 2022-09-15 15:55 | Outpatient (CLI) | payer MEDICAID, SELFPAY ==
--- NOTE | 2022-09-15 16:31 | XRR_ITS ---
PROCEDURE INFORMATION: Exam: XR Right Hand Exam date and time: 09/15/2022 4:29 PM Age: 37 years old Clinical indication: Pain; Finger(s) and hand; Right; Patient HX: Horse injured the patient's hand; Additional info: Right finger pain TECHNIQUE: Imaging protocol: Radiologic exam of the right hand. Views: 1 or 2 views. COMPARISON: CR XR hand RT 2V [id number] 02/02/2021 1:46 PM FINDINGS: Bones/joints: Normal. Soft tissues: Stable chronic calcifications adjacent to the 5th DIP joint. XR/XR hand RT 2V [id number] IMPRESSION: No acute findings.
== END 2022-09-15 15:56 | disposition home or self-care (01) ==
LOC: RAD 16:01
PROVIDERS: PCP Internal Medicine; Visit Provider Nurse Practitioner Family
DX: M79.644 Pain in right finger(s) (principal)
CPT/HCPCS: 73120

== ENCOUNTER → 2022-12-21 07:56 | Outpatient (BNVA) | payer OTHER, MEDICAID, SELFPAY | PROVIDERS: PCP Internal Medicine; Visit Provider Specialist | DX: G43.711 Chronic migraine without aura, intractable, with status migrainosus (principal); M48.061 Spinal stenosis, lumbar region without neurogenic claudication; G62.89 Other specified polyneuropathies; R29.90 Unspecified symptoms and signs involving the nervous system | CPT/HCPCS: 99204 ==

== ENCOUNTER 2023-04-18 09:57 | Outpatient (CLI) | payer OTHER, MEDICAID, SELFPAY ==
--- NOTE | 2023-04-18 10:01 | USR_ITS ---
PROCEDURE INFORMATION: Exam: US Soft Tissue Head and Neck, Thyroid Exam date and time: 04/18/2023 10:13 AM Age: 38 years old Clinical indication: Abnormal findings; Abnormal thyroid lab test; Additional info: Hypothyroidism TECHNIQUE: Imaging protocol: Real-time ultrasound scan of the neck with image documentation. Exam focused on the thyroid. COMPARISON: No relevant prior studies available. FINDINGS: Right thyroid lobe: There is a 7 x 4 x 6 mm echogenic nodule in the posteroinferior right lobe which demonstrates wider than tall shape, irregular margins and no calcifications. There is diffuse heterogeneous parenchymal echotexture in the right lobe. Right lobe measures 3.7 x 1.5 x 1.2 cm for a volume of 3.5 cc. Left thyroid lobe: There is diffuse heterogeneous parenchymal echotexture in the left lobe. No nodules in the left lobe. Left lobe measures 2.9 x 1.3 x 1.0 cm for a volume of 1.9 cc. Isthmus: Isthmus measures 3 mm in thickness. US/US thyroid [id number] IMPRESSION: 1. Small thyroid gland with diffuse heterogeneous parenchymal echotexture suggests chronic lymphocytic thyroiditis. 2. 7 mm right thyroid nodule. TI-RADS category TR4, Moderately Suspicious. No fine needle aspiration or follow-up ultrasound is recommended based on size less than 1 cm. (Reference: Abimbola) REFERENCES: Abimbola FN, Keit LOPEZ, Rudy AYALA et al. ACR Thyroid Imaging, Reporting and Data System (TI-RADS): White Paper of the ACR TI-RADS Committee. J Am Pooja Radiol. 2017; 14: 587-595.
== END 2023-04-18 09:58 | disposition home or self-care (01) ==
LOC: RAD 09:57
PROVIDERS: PCP Internal Medicine; Visit Provider Internal Medicine
DX: E03.9 Hypothyroidism, unspecified (principal); E04.1 Nontoxic single thyroid nodule
CPT/HCPCS: 76536

== ENCOUNTER 2023-04-27 07:47 | Outpatient (CLI) | payer OTHER, MEDICAID, SELFPAY ==
--- NOTE | 2023-04-27 08:00 | MR_ITS ---
WS: [id number] MRI CERVICAL SPINE NONCONTRAST TECHNIQUE: Sagittal T1, T2 and STIR imaging. Axial T2, gradient, and fiesta imaging. CLINICAL INFORMATION: M54.12 - Radiculopathy, cervical region COMPARISON: None. FINDINGS: Straightening of the normal cervical lordosis. Cord signal is normal. No high-grade central canal lyndsey nosis. C2-C3: Normal. C3-C4: Mild annular bulging. Mild facet arthropathy. Spinal canal and foramen are patent. Mild facet arthropathy. C4-C5: Minimal disc bulging. Mild facet arthropathy. Mild LEFT foraminal narrowing. Mild facet arthro jhoana. C5-C6: Minimal disc bulging. Mild facet arthropathy. Mild LEFT bony foraminal narrowing. Mild facet a rthropathy. C6-C7: Mild facet arthropathy. Osteophytic ridging. Spinal canal and foramen are patent. C7-T1: Mild LEFT eccentric osteophytic ridging with uncovertebral joint hypertrophy. Mild facet arthr opathy. Spinal canal and foramen are patent. Partially visualized RIGHT paracentral protrusion in the upper cervical spine at T4-T5 Incidental cerebellar tonsillar ectopia. Prevertebral soft tissues: Normal. IMPRESSION: 1. Straightening of the normal cervical lordosis. Cord signal is normal. No high-grade central jah l stenosis. 2. Mild LEFT bony foraminal narrowing LEFT C3-C4, LEFT C4-C5, LEFT C5-C6, and LEFT C7-T1. 3. Mild facet arthropathy described above. 4. Partially visualized RIGHT paracentral protrusion in the upper thoracic spine at T4-T5
== END 2023-04-27 07:48 | disposition home or self-care (01) ==
LOC: RAD 07:48
PROVIDERS: PCP Internal Medicine; Visit Provider Specialist
DX: M54.12 Radiculopathy, cervical region (principal); M48.03 Spinal stenosis, cervicothoracic region; M47.813 Spondylosis without myelopathy or radiculopathy, cervicothoracic region; M51.24 Other intervertebral disc displacement, thoracic region
CPT/HCPCS: 72141

== ENCOUNTER 2023-05-30 13:46 | Outpatient (CLI) | payer OTHER, SELFPAY ==
--- NOTE | 2023-05-30 13:51 | MM_ITS ---
WS: [id number] SCREENING DIGITAL TOMOSYNTHESIS MAMMOGRAM WITH CAD HISTORY: SCREENING COMPARISON: 11/04/2021 Bilateral CC and MLO with tomosynthesis views submitted. Synthetic mammography reviewed. Computer aid ed detection analyzed. Breast composition: There are scattered areas of fibroglandular density. No suspicious masses, microc alcifications or architectural distortion. IMPRESSION: MM/[place] [id number] BI-RADS: 1-Negative FOLLOW UP: 1 Year Follow-up
== END 2023-05-30 13:47 | disposition home or self-care (01) ==
LOC: RAD 13:47
PROVIDERS: PCP Internal Medicine; Visit Provider Internal Medicine
DX: Z12.31 Encounter for screening mammogram for malignant neoplasm of breast (principal); R92.323 Mammographic fibroglandular density, bilateral breasts
CPT/HCPCS: 77063; 77067

== ENCOUNTER → 2023-06-28 14:07 | Outpatient (BNVA) | payer OTHER, SELFPAY | PROVIDERS: PCP Internal Medicine; Visit Provider Specialist | DX: G43.711 Chronic migraine without aura, intractable, with status migrainosus; G62.89 Other specified polyneuropathies | CPT/HCPCS: 82607; 83520; 85651; 86160; 86162; 86200; 86235; 86255; 86376 ==

== ENCOUNTER 2023-07-04 20:38 | Emergency (ER) | payer OTHER, SELFPAY ==
[2023-07-04 20:44] VITALS: BP 181/84; PULSE 60; RESP 16; TEMP 36.5; O2SAT 99
[2023-07-04] MEDS: ondansetron 2 mg/ML SDV 2 mL 4 MG IVP (20:59)
[2023-07-04] MEDS: ketorolac 30 mg/mL INJ IVP (20:59)
[2023-07-04] MEDS: sodium chloride 0.9% 1,000 ML 999 ML IV (20:59)
--- NOTE | 2023-07-04 20:59 | CTR_ITS ---
PROCEDURE INFORMATION: Exam: CT Abdomen And Pelvis Without Contrast Exam date and time: 07/04/2023 9:11 PM Age: 38 years old Clinical indication: Abdominal pain; Flank; Left; Prior surgery; Surgery date: 6+ months; Surgery type: Renea, hyst; Additional info: Left flank pain radiating into groin history of kidney stone TECHNIQUE: Imaging protocol: Computed tomography of the abdomen and pelvis without contrast. Radiation optimization: All CT scans at this facility use at least one of these dose optimization techniques: automated exposure control; mA and/or kV adjustment per patient size (includes targeted exams where dose is matched to clinical indication); or iterative reconstruction. COMPARISON: CR XR sacroiliac jts m 3V [id number] 02/02/2021 1:38 PM RADIATION DOSE METRICS: Total DLP (mGy-cm): 968.13 FINDINGS: Lungs: Lung bases are clear. No pleural effusion. Liver: The liver demonstrates diffuse fatty infiltration. No evidence of liver mass. Gallbladder and bile ducts: The gallbladder has been resected. Pancreas: Normal. No ductal dilation. Spleen: Normal. No splenomegaly. Adrenal glands: Normal. No mass. Kidneys and ureters: See Urinary bladder finding. Stomach and bowel: Unremarkable. No obstruction. No mucosal thickening. Appendix: No evidence of appendicitis. Intraperitoneal space: Unremarkable. No free air. No significant fluid collection. Vasculature: Unremarkable. No abdominal aortic aneurysm. Lymph nodes: Unremarkable. No enlarged lymph nodes. Urinary bladder: There is a 3 mm stone located in the lumen of the bladder on the right side. There is abnormal dilatation of the entire left ureter down to the bladder but I see no ureteral stone. Reproductive: Unremarkable as visualized. Bones/joints: Unremarkable. No acute fracture. Soft tissues: Unremarkable. CT/CT kidney stone [id number] IMPRESSION: Left ureteral dilatation which is probably due to recent stone passage. A 3 mm stone lies within the bladder lumen.
[2023-07-04 21:22] LABS: Alanine Aminotransferase 70 U/L (0-33); Albumin Level 4.7 g/dL (3.5-5.2); Alkaline Phosphatase 85 U/L (35-105); Anion Gap 18.1 (5-19); Aspartate Amino Transferase 82 U/L (0-32); Blood Urea Nitrogen 14 mg/dL (6-20); Calcium 9.8 mg/dL (8.5-10.5); Carbon Dioxide 25 mmol/L (22-29); Chloride 102 mmol/L (98-107); Creatinine Clr Calc Pharmacy 103.4822; Globulin 2.8 g/dL (1.3-4.6); Glomerular Filtration Rate 79.4 mL/min (90-130); Glucose 117 mg/dL (65-115); Osmolality Calculated 294 mOsm/kg (285-295); Potassium 4.1 mmol/L (3.5-5.1); Sodium 141 mmol/L (136-145); Total Bilirubin 0.3 mg/dL (0.15-1.2); Total Protein 7.5 g/dL (6.6-8.7)
[2023-07-04 21:24] LABS: Basophils # 0.1 10^3/uL (0.0-0.1); Basophils % 1.4 %; Eosinophils # 0.4 10^3/uL (0.0-0.8); Eosinophils % 6.7 %; Hematocrit 43.5 % (36-47); Lymphocytes % 45.5 %; Mean Corpuscular HGB Conc 33.1 g/dL (30-55); Mean Corpuscular Hemoglobin 28.8 pg (27-33); Mean Platelet Volume 9.5 fL (7.4-10.4); Monocytes # 0.6 10^3/uL (0.2-0.9); Monocytes % 8.5 %; Neutrophils % 37.7 %; Nucleated Red Blood Cells % 0 %; Platelet Count 448 10^3/cmm (157-399); Red Cell Distribution Width 12.1 % (12.1-15.1); White Blood Count 6.61 10^3/uL (3.29-11.43)
--- NOTE | 2023-07-04 21:44 | ED_ITS ---
HPI - Abdominal Pain 2 General: Chief Complaint: Abdominal Pain Stated Complaint: low left abd pain Time Seen by Provider: 07/04/23 20:50 History of Present Illness: Patient is a 38-year-old female who presents to the ER with complaints of left- sided flank pain that radiates down to her groin. This does cause the patient nausea. This started about 1 hour ago. Patient has had kidney stones in the past. She does not not know with anything that makes his pain better or worse. Patient has not had any fever chills coughs colds sore throats etc. Review of Systems 2 General: Reports: 10 or more systems reviewed and unremarkable except in HPI and below PFSH ED 2 PFSH: Medical History Loss of perineal body, female Uterine prolapse Torsion of left ovary Still has ovary but was surgically reduced GERD (gastroesophageal reflux disease) Renal calculus Hypothyroidism Surgical History Status post wisdom tooth extraction S/P tonsillectomy S/P cholecystectomy Status post lumbar laminectomy L4/5 Status post hysteroscopic polypectomy S/P dilation and curettage Family History Father CAD (coronary artery disease) Myocardial infarction age less than 55 Hypertension Heart disease Hypercholesteremia Mother Breast cancer dx age 63 Ovarian cancer dx age 58 Uterine cancer dx age 58 Grandmother Breast cancer Maternal--dx age 30's or 40's Diabetes Maternal Thyroid disease Maternal Grandfather Hypertension Paternal Sister Thyroid disease Denies family history of Colon cancer Stroke Social History Substance/Drug Use: never Physical Exam 2 Const: COMMON NORMALS: no acute distress, average body habitus, patient oriented x3, no limitations, healthy appearing, alert and well nourished HENMT: COMMON NORMALS: normocephalic, atraumatic, hearing grossly normal bilaterally, external ears normal, Normal external nose present, moist oral mucous membranes and oropharynx normal HEAD & SCALP: normocephalic and atraumatic NOSE: Normal external nose present EXTERNAL EAR: Yes external ears normal Neck/C-Spine: COMMON NORMALS: no JVD Chest: COMMONS NORMALS: normal inspection of the chest and normal palpation of entire chest wall Resp: COMMON NORMALS: normal respiratory effort, No retractions, No use of accessory muscles and clear to auscultation bilaterally AUSCULTATION: clear to auscultation bilaterally Cardio: COMMON NORMALS: no JVD, regular rate, regular rhythm, S1 normal heart sound present, S2 normal heart sound present, No gallops present (Cardio), No clicks present (Cardio), No murmurs present (Cardio) and No rub (Cardio) R ATE: regular rate RHYTHM: regular rhythm HEART SOUNDS: S1 normal heart sound present and S2 normal heart sound present GI: COMMON NORMALS: Normal to inspection, nondistended, normoactive bowel sounds present, Soft to palpation, non-tender and no masses PALPATION: Yes Soft to palpation Neuro: COMMON NORMALS: patient oriented x3 SENSORIUM/ORIENTATION: Yes alert Course 2 Vital Signs: Vital signs: Vital Signs Temperature 97.7 F 07/04/23 20:44 Pulse Rate 60 07/04/23 20:44 Respiratory Rate 16 07/04/23 20:44 Blood Pressure 181/84 07/04/23 20:44 Pulse Oximetry 99 07/04/23 20:44 Oxygen Delivery Me thod Room Air 07/04/23 20:44 MDM - Abdominal Pain Medical Decision Making Patient had lab work, urinalysis and a renal stone CT. Showed left ureteral dilation probably due to recent passing stone there is a 3 mm stone in the bladder lumen. These results was discussed with the patient. Patient will be sent home with some Toradol tablets as well as a prescription. Differential Diagnosis Likely abdominal pain and calculus of kidney; Unlikely acute appendicitis, constipation, diverticulitis, endometriosis, gastroenteritis, pancreatitis or small bowel obstruction Medical Records I reviewed the patient's medical records. Lab Data I reviewed the patient's lab results. 07/04/23 20:51 07/04/23 20:51 Labs/Radiology: Radiology Impressions Abdomen/Pelvis CT 07/04/23 20:59 IMPRESSION: Left ureteral dilatation which is probably due to recent stone passage. A 3 mm stone lies within the bladder lumen. Laboratory Results WBC 6.61 10^3/uL (3.29-11.43) 07/04/23 20:51 RBC 5.00 10^6/uL (3.85-5.65) 07/04/23 20:51 Hgb 14.40 g/dL (11.27-16.99) 07/04/23 20:51 Hct 43.5 % (36-47) 07/04/23 20:51 MCV 87.0 fl (85-98) 07/04/23 20:51 MCH 28.8 pg (27-33) 07/04/23 20:51 MCHC 33.1 g/dL (30-55) 07/04/23 20:51 RDW 12.1 % (12.1-15.1) 07/04/23 20:51 Plt Count 448 10^3/cmm (157-399) H 07/04/23 20:51 MPV 9.5 fL (7.4-10.4) 07/04/23 20:51 Neut % (Auto) 37.7 % 07/04/23 20:51 Lymph % (Auto) 45.5 % 07/04/23 20:51 [place] % (Auto) 8.5 % 07/04/23 20:51 Eos % (Auto) 6.7 % 07/04/23 20:51 Baso % (Auto) 1.4 % 07/04/23 20:51 Neut # (Auto) 2.50 10^3/uL (1.8-7.7) 07/04/23 20:51 Lymph # (Auto) 3.0 10^3/uL (0.8-4.8) 07/04/23 20:51 [place] # (Auto) 0.6 10^3/uL (0.2-0.9) 07/04/23 20:51 Eos # (Auto) 0.4 10^3/uL (0.0-0.8) 07/04/23 20:51 Baso # (Auto) 0.1 10^3/uL (0.0-0.1) 07/04/23 20:51 Nucleated RBC % (auto) 0 % 07/04/23 20: Nucleated RBCs # 0.0 /100WBC 07/04/23 20:51 Sodium 141 mmol/L (136-145) 07/04/23 20:51 Potassium 4.1 mmol/L (3.5-5.1) 07/04/23 20:51 Chloride 102 mmol/L (98-107) 07/04/23 20:51 Carbon Dioxide 25 mmol/L (22-29) 07/04/23 20:51 Anion Gap 18.1 (5-19) 07/04/23 20:51 BUN 14 mg/dL (6-20) 07/04/23 20:51 Creatinine 0.8 mg/dL (0.5-0.9) 07/04/23 20:51 GFR Calculation 79.4 mL/min (90-130) L 07/04/23 20:51 Glucose 117 mg/dL (65-115) H 07/04/23 20:51 Calculated Osmolality 294 mOsm/kg (285-295) 07/04/23 20:51 Calcium 9.8 mg/dL (8.5-10.5) 07/04/23 20:51 Total Bilirubin 0.3 mg/dL (0.15-1.2) 07/04/23 20:51 AST 82 U/L (0-32) H 07/04/23 20:51 ALT 70 U/L (0-33) H 07/04/23 20:51 Alkaline Phosphatase 85 U/L (35-105) 07/04/23 20:51 Total Protein 7.5 g/dL (6.6-8.7) 07/04/23 20:51 Albumin 4.7 g/dL (3.5-5.2) 07/04/23 20:51 Globulin 2.8 g/dL (1.3-4.6) 07/04/23 20:51 Urine Color Yellow (Yellow) 07/04/23 21:27 Urine Appearance Clear (CLEAR) 07/04/23 21:27 Urine pH 7 (5-7) 07/04/23 21:27 Ur Specific Walker 1.015 (1.005-1.030) 07/04/23 21:27 Urine Protein Neg (Negative) 07/04/23 21:27 Urine Glucose (UA) Norm (Normal) 07/04/23 21: Urine Ketones Negative (Negative) 07/04/23 21:27 Urine Blood 3+ (Negative) H 07/04/23 21:27 Urine Nitrate Negative (Negative) 07/04/23 21: Urine Bilirubin Neg (Negative) 07/04/23 21: Urine Urobilinogen Neg mg/dL (Negative) 07/04/23 21:27 Ur Leukocyte Esterase Negative (Negative) 07/04/23 21:27 Urine RBC 10-15 /hpf (0-2) H 07/04/23 21:27 Urine WBC None /hpf (0-5) 07/04/23 21:27 Ur Squamous Epith Cells 0-4 /hpf (0-5) H 07/04/23 21:27 Amorphous Sediment Not Reportable 07/04/23 21:27 Urine Bacteria Trace /hpf (NONE) 07/04/23 21:27 All radiology interpretation(s) finalized by discharge Discharge Plan Discharge Patient Disposition: Home Clinical Impression: Calculus of kidney Condition: Stable Prescriptions: New ketorolac 10 mg tablet 10 mg PO Q6H Qty: 14 0RF No Action (DME) ptt supenator See Rx Instructions .Route .MEDSUPPLY Qty: 1 0RF Rx Instructions: As directed cetirizine [All Day Allergy (cetirizine)] 10 mg tablet 10 mg PO DAILY PRN (Reason: Allergy Symptoms) omeprazole 20 mg capsule,delayed release(DR/EC) 20 mg PO DAILY Women's Multivitamin Collagen 200 mcg- 25 mg tablet,chewable 1 tab PO DAILY sucralfate [Carafate] 1 gram tablet 1 g PO BID liothyronine [Cytomel] 5 mcg tablet 5 mcg PO DAILY Qty: 90 0RF levothyroxine [Synthroid] 125 mcg tablet 125 mcg PO DAILY Qty: 90 0RF metformin 500 mg tablet extended release 24 hr 1,000 mg PO BID Qty: 180 0RF duloxetine [Cymbalta] 30 mg capsule,delayed release(DR/EC) 30 mg PO DAILY Saccharomyces boulardii [Daily Probiotic (S. boulardii)] 250 mg capsule 250 mg PO BID Emgality Syringe 120 mg/mL syringe 240 mg SUBCUT ONCE Qty: 2 1RF Rx Instructions: 240 mg loading dose Emgality Syringe 120 mg/mL syringe 120 mg SUBCUT ONCE Qty: 1 4RF levothyroxine 125 mcg capsule 125 mcg PO DAILY Qty: 60 8RF estradiol 1 mg tablet 1 mg PO DAILY Qty: 90 4RF propranolol 20 mg tablet See Rx Instructions .ROUTE .COMPLEX Qty: 60 0RF Dose Instruction: Take 1 tablet by mouth twice daily Rx Instructions: Take 1 tablet by mouth twice daily ibuprofen 800 mg tablet 800 mg PO Q8H Qty: 40 0RF Discharge Orders: Discharge ED (Routine); Ordered 07/04/23 Ordered By: Ji Santos Referrals: Ami Urbano MD [Primary Care Provider] - 1 week Patient Instructions: Kidney Stones, How to Strain Your Urine (ED), Pain Management Activity Restrictions/Additional Instructions: You have a 3 mm kidney stone that is passed all the way to your bladder. You will be given Toradol tablets to go home for pain control as well as a prescription. Please drink plenty of fluids. Please strain all your urine. Please follow-up with your family practice doc within next 7 days for further evaluation and treatment as needed. Coding Level of Care Code ED Folder Seamer Automatic for Ishmael Flores
[2023-07-04 21:54] LABS: Add Urine Microscopic? YES; Bacteria Urine TRACE /hpf; Bilirubin Urine Neg (Negative); Blood Urine 3+ (Negative); Glucose Urine UA Norm (Normal); Ketones Urine Negative (Negative); Leukocyte Esterase Urine Negative (Negative); Nitrate Urine Negative (Negative); Protein Urine Neg (Negative); Specific Gravity, Urine 1.015 (1.005-1.030); Squamous Epithelial Cell Urine 0-4 /hpf (0-5); Urine Appearance Clear (CLEAR); Urine Color Yellow (Yellow); Urobilinogen Urine Neg (Negative); pH Urine 7 (5-7)
[2023-07-04 21:55] LABS: Add Urine Culture? Yes
[2023-07-04] MEDS: ketorolac 10 mg Tablet PO (22:19)
[2023-07-04 22:20] VITALS: BP 143/96; PULSE 80; RESP 18; O2SAT 100
== END 2023-07-04 22:21 | disposition home or self-care (01) ==
PROVIDERS: Emergency Provider Emergency Medicine; PCP Internal Medicine
DX: N20.0 Calculus of kidney (principal); Z79.84 Long term (current) use of oral hypoglycemic drugs; Z87.442 Personal history of urinary calculi
CPT/HCPCS: 74176; 80053; 81001; 85025; 87086; 96361; 96374; 96375; 99285; J1885; J2405; J7030

== ENCOUNTER 2024-05-30 01:16 | Emergency (ER) | payer MEDICAID, SELFPAY ==
[2024-05-30 01:26] VITALS: BP 145/91; PULSE 75; RESP 18; TEMP 36.5; O2SAT 97; BMI 31.1
--- NOTE | 2024-05-30 02:05 | W.ED.URI ---
HPI - URI/Sore Throat General: Chief Complaint: Upper Respiratory Infection Stated Complaint: Cough\Fever Conjested\Diar Time Seen by Provider: 05/30/24 01:41 History of Present Illness: Patient presents to the ER with complaints of fever chills body aches cough all getting better. He started about a week ago. She got a bug from her son who is in daycare and that she passed some to her daughter. Patient has been taking Tylenol to help with her body aches and fever. Related Data Home Medications ?Medication ?Instructions ?Recorded ?Confirmed cetirizine 10 mg tablet (All Day 10 mg PO DAILY PRN Allergy Symptoms 02/02/21 04/02/24 Allergy (cetirizine)) omeprazole 20 mg capsule,delayed 20 mg PO DAILY 02/02/21 04/02/24 release adjvlxxu-pjo-wahpc acid 200 1 tab PO DAILY 06/09/21 04/02/24 mcg-collagen, hydrolyzed 25 mg chew tablet (Women's Multivitamin with Collagen) Saccharomyces boulardii 250 mg 250 mg PO BID 03/28/23 04/02/24 capsule (Daily Probiotic (S. boulardii)) sucralfate 1 gram tablet (Carafate) 1 g PO BID 06/09/23 04/02/24 Previous Rx's ?Medication ?Instructions ?Recorded ptt supenator #1 ea 11/16/20 ibuprofen 800 mg tablet 800 mg PO Q8H #40 tabs 01/04/22 levothyroxine 125 mcg capsule 125 mcg PO DAILY #60 caps 04/29/22 estradiol 1 mg tablet 1 mg PO DAILY #90 tabs 05/26/22 Synthroid 125 mcg tablet 125 mcg PO DAILY #90 tabs 06/09/23 (levothyroxine) liothyronine 5 mcg tablet (Cytomel) 7.5 mcg (1.5 x 5 mcg) PO DAILY 08/31/23 #135 tabs liraglutide 0.6 mg/0.1 mL (18 mg/3 See Rx Instructions SUBCUT 08/31/23 mL) subcutaneous pen injector .COMPLEX #9 mL (Victoza 3-Marcello) propranolol 20 mg tablet 20 mg PO BID #180 tabs 10/24/23 propranolol 20 mg tablet See Rx Instructions .Route 10/24/23 .COMPLEX #60 tabs metformin 500 mg tablet,extended See Rx Instructions .Route 03/04/24 release 24 hr .COMPLEX #180 tabs Allergies Allergy/AdvReac Type Severity Reaction Status Date / Time adhesive Allergy ALGY-Rash Verified 05/30/24 01:29 adhesive tape Allergy itching Verified 05/30/24 01:29 and rash Review of Systems General: Reports: 10 or more systems reviewed and unremarkable except in HPI and below PFSH ED PFSH: Medical History Loss of perineal body, female Uterine prolapse Torsion of left ovary Still has ovary but was surgically reduced GERD (gastroesophageal reflux disease) Renal calculus Hypothyroidism Surgical History Status post wisdom tooth extraction S/P tonsillectomy S/P cholecystectomy Status post lumbar laminectomy L4/5 Status post hysteroscopic polypectomy S/P dilation and curettage Family History Father CAD (coronary artery disease) Myocardial infarction age less than 55 Hypertension Heart disease Hypercholesteremia Mother Breast cancer dx age 63 Ovarian cancer dx age 58 Uterine cancer dx age 58 Grandmother Breast cancer Maternal--dx age 30's or 40's Diabetes Maternal Thyroid disease Maternal Grandfather Hypertension Paternal Sister Thyroid disease Denies family history of Colon cancer Stroke Social History Smoking and tobacco/nicotine status: never used tobacco/nicotine Substance/Drug Use: never Physical Exam Const: COMMON NORMALS: no acute distress, average body habitus, patient oriented x3, no limitations, healthy appearing, alert and well nourished HENMT: COMMON NORMALS: normocephalic, atraumatic, hearing grossly normal bilaterally, external ears normal and Normal external nose present HEAD & SCALP: normocephalic and atraumatic NOSE: Normal external nose present EXTERNAL EAR: Yes external ears normal Neck/C-Spine: COMMON NORMALS: full ROM, no lymphadenopathy, supple, no meningeal signs, no JVD and Thyroid normal THYROID: Thyroid normal Chest: COMMONS NORMALS: normal inspection of the chest and normal palpation of entire chest wall Resp: COMMON NORMALS: normal respiratory effort, No retractions, No use of accessory muscles and clear to auscultation bilaterally AUSCULTATION: clear to auscultation bilaterally Cardio: COMMON NORMALS: no JVD, regular rate, regular rhythm, S1 normal heart sound present, S2 normal heart sound present, No gallops present (Cardio), No clicks present (Cardio), No murmurs present (Cardio) and No rub (Cardio) RATE: regular rate RHYTHM: regular rhythm HEART SOUNDS: S1 normal heart sound present and S2 normal heart sound present GI: COMMON NORMALS: Normal to inspection, nondistended, normoactive bowel sounds present, Soft to palpation, non-tender, No hepatosplenomegaly present and no masses PALPATION: Yes Soft to palpation and Yes No hepatosplenomegaly present Neuro: COMMON NORMALS: patient oriented x3 SENSORIUM/ORIENTATION: Yes alert MENINGEAL SIGNS: Yes no meningeal signs Course Vital Signs: Vital signs: Vital Signs Temperature 97.7 F 05/30/24 01:26 Pulse Rate 75 05/30/24 01:26 Respiratory Rate 18 05/30/24 01:26 Blood Pressure 145/91 05/30/24 01:26 Pulse Oximetry 97 05/30/24 01:26 Oxygen Delivery Me thod Room Air 05/30/24 01:26 MDM - URI/Sore Throat Medical Decision Making Patient swabs were actually all negative however her daughter swabs are still positive for influenza A. It is thought the patient may be getting over influenza and still had a postviral cough. Medical Records I reviewed the patient's medical records. Lab Data I reviewed the patient's lab results. Laboratory Results Coronavirus (PCR) Negative (Negative) 05/30/24 01:29 Influenza A (PCR) Negative (Negative) 05/30/24 01:29 Influenza Type B (PCR) Negative (Negative) 05/30/24 01:29 RSV (PCR) Negative (Negative) 05/30/24 01:29 All radiology interpretation(s) finalized by discharge Discharge Plan Discharge Patient Disposition: Home Clinical Impression: Influenza A Condition: Stable Prescriptions: No Action (DME) ptt supenator See Rx Instructions .Route .MEDSUPPLY Qty: 1 0RF Rx Instructions: As directed cetirizine [All Day Allergy (cetirizine)] 10 mg tablet 10 mg PO DAILY PRN (Reason: Allergy Symptoms) omeprazole 20 mg capsule,delayed release(DR/EC) 20 mg PO DAILY Women's Multivitamin Collagen 200 mcg- 25 mg tablet,chewable 1 tab PO DAILY sucralfate [Carafate] 1 gram tablet 1 g PO BID levothyroxine [Synthroid] 125 mcg tablet 125 mcg PO DAILY Qty: 90 0RF liothyronine [Cytomel] 5 mcg tablet 7.5 mcg PO DAILY Qty: 135 1RF Victoza 3-Marcello 0.6 mg/0.1 mL (18 mg/3 mL) pen injector See Rx Instructions SUBCUT .COMPLEX Qty: 9 1RF Rx Instructions: inject 0.6mg subcutaneously once daily x 7 days; then 1.2mg daily, not to exceed 1.8mg/day SUBCUT Saccharomyces boulardii [Daily Probiotic (S. boulardii)] 250 mg capsule 250 mg PO BID levothyroxine 125 mcg capsule 125 mcg PO DAILY Qty: 60 8RF estradiol 1 mg tablet 1 mg PO DAILY Qty: 90 4RF propranolol 20 mg tablet See Rx Instructions .ROUTE .COMPLEX Qty: 60 0RF Dose Instruction: Take 1 tablet by mouth twice daily Rx Instructions: Take 1 tablet by mouth twice daily propranolol 20 mg tablet 20 mg PO BID Qty: 180 3RF metformin 500 mg tablet extended release 24 hr See Rx Instructions .ROUTE .COMPLEX Qty: 180 0RF Dose Instruction: Take 2 tablets by mouth twice daily Rx Instructions: Take 2 tablets by mouth twice daily ibuprofen 800 mg tablet 800 mg PO Q8H Qty: 40 0RF Discharge Orders: Discharge ED (Routine); Ordered 05/30/24 Ordered By: Ji Santos Referrals: Ami Urbano MD [Primary Care Provider] - 1 week Patient Instructions: Influenza (ED) Activity Restrictions/Additional Instructions: Thank you for choosing [facility] for your healthcare needs today. Please realize that you were seen in the emergency department and that we are providing you with an emergency medical screening exam and this may not be a complete and all exclusive of all testing and/or medical workup we may need to determine your element or severity of your illness. It is very important that you follow-up as instructed with your primary care provider or specialist for the additional evaluation and to discuss your medical treatment plan. You may return to the emergency department should you have concerns or if your condition changes or worsens in any way. Print Language: Luxembourgish Coding Level of Care Code ED Excel Developer for Ishmael Flores
[2024-05-30 02:16] LABS: Covid PCR NEGATIVE (Negative); Influenza A NEGATIVE (Negative); Influenza B NEGATIVE (Negative); Respiratory Syncytial Virus Ce NEGATIVE (Negative)
== END 2024-05-30 02:45 | disposition home or self-care (01) ==
PROVIDERS: Emergency Provider Emergency Medicine; PCP Internal Medicine
DX: J10.1 Influenza due to other identified influenza virus with other respiratory manifestations (principal); Z11.52 Encounter for screening for COVID-19; Z79.84 Long term (current) use of oral hypoglycemic drugs
CPT/HCPCS: 87637; 99283

== ENCOUNTER 2024-06-03 07:50 | Outpatient (CLI) | payer MEDICAID, SELFPAY ==
--- NOTE | 2024-06-03 08:20 | NM_ITS ---
WS: [id number] NUCLEAR MEDICINE GASTRIC STUDY CLINICAL INFORMATION: REFLUX, GASTRITIS TECHNIQUE: Following oral ingestion of cooked egg mixed with 1.06 mCi technetium 99m sulfur colloid, anterior images of the stomach were obtained over the course of 90 minutes. Activity curve was performed over the course of 90 minutes with linear regression analysis. COMPARISON: None. FINDINGS: Oral ingestion of cooked egg mixture technetium labeled sulfur colloid. T1 half emptying 127 minutes compatible with delayed gastric emptying. Only 14% emptying at 60 minutes [place] [id number] IMPRESSION: Findings of delayed gastric emptying with T1 half emptying 127 minutes *Normal median T1 half 90 minutes for solid egg meal (45-110 minutes). Delayed gastric retention is defined as 90% retained at 1 hour, 60% at 2 hour s, 30% at 3 hours, and 10% at 4 hours (normal percent gastric retention is 37-9 0% at 1 hour, 30-60% at 2 hours, and 0-10% at 4 hours).
== END 2024-06-03 07:51 | disposition home or self-care (01) ==
PROVIDERS: PCP Internal Medicine; Visit Provider Internal Medicine
DX: K29.60 Other gastritis without bleeding (principal); K21.9 Gastro-esophageal reflux disease without esophagitis; R93.89 Abnormal findings on diagnostic imaging of other specified body structures
CPT/HCPCS: 78264; A9541

== ENCOUNTER 2024-06-21 09:10 | Outpatient (CLI) | payer MEDICAID, SELFPAY ==
--- NOTE | 2024-06-21 09:15 | MM_ITS ---
WS: [id number] BILATERAL SCREENING DIGITAL TOMOSYNTHESIS MAMMOGRAM WITH CAD HISTORY: SCREENING COMPARISON: 05/30/2023, 11/04/2021 Bilateral CC and MLO views with tomosynthesis and synthetic mammography submitted. Computer aided detection analyzed. Breast composition: There are scattered areas of fibroglandular density. No suspicious masses, microcalcifications or architectural distortion. MM/MM scr BI tomosynthesis [id number] IMPRESSION: BI-RADS: 1 - Negative. FOLLOW UP: 1 Year Follow-up
== END 2024-06-21 09:11 | disposition home or self-care (01) ==
PROVIDERS: PCP Internal Medicine; Visit Provider Internal Medicine
DX: Z12.31 Encounter for screening mammogram for malignant neoplasm of breast (principal); R92.323 Mammographic fibroglandular density, bilateral breasts
CPT/HCPCS: 77063; 77067

== ENCOUNTER 2025-03-02 20:07 | Emergency (ER) | payer MEDICAID, SELFPAY ==
[2025-03-02 20:08] VITALS: BP 182/108; PULSE 60; RESP 16; TEMP 36.3; O2SAT 100; BMI 30.7
--- NOTE | 2025-03-02 20:09 | XRR_ITS ---
PROCEDURE INFORMATION: Exam: XR Right Shoulder Exam date and time: 03/02/2025 8:20 PM Age: 40 years old Clinical indication: Pain; Shoulder; Right TECHNIQUE: Imaging protocol: Radiologic exam of the right shoulder. Views: 2 or more views. COMPARISON: MR cervical spin wo con* [id number] 04/27/2023 8:04 AM FINDINGS: Bones/joints: There are findings of calcific tendinitis of the right supraspinatus tendon. There is no acute fracture or dislocation. Soft tissues: Normal. XR/XR shoulder RT min 2V* [id number] IMPRESSION: Calcific tendinitis right supraspinatus tendon No acute fracture or dislocation
--- OUTSIDE RECORDS SUMMARY | 2025-03-02 20:10 | XMS_ITS | Encounter Summary ---
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
--- OUTSIDE RECORDS SUMMARY | 2025-03-02 20:10 | XMS_ITS | Clinical Summary ---
Author Organization [facility] Address [facility] [facility] [place] [address] Care Team Providers Care Deployment Specialist Name Role Phone Unavailable Primary Care Provider Unavailabl e Allergies No known active allergies Medications docusate sodium (COLACE) 100 mg capsule Take 100 mg by mouth 2 times daily. Active Vit 06-Lvjf-EF-DSS (ADVANCED ) 90-1-50 mg Tablet Take 1 Tablet by mouth daily. Active ibuprofen (MOTRIN) 800 mg tablet Take 800 mg by mouth every 8 hours as needed for Pain, Mild. 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 Active cephALEXin (KEFLEX) 500 mg capsule Take 1 Capsule (500 mg) by mouth 4 times daily. 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 Gender Identity Not on file Sexual Orientation Not on file Last Filed Vital Signs Vital Sign Reading Time Taken Comments Blood Pressure 152/82 09/28/2015 11:29 PM CDT Pulse - - Temperature 38.9 C (102 F) 09/28/2015 11:29 PM CDT Respiratory Rate 17 09/28/2015 11:29 PM CDT Oxygen Saturation 96% 09/28/2015 11:29 PM CDT Inhaled Oxygen Concentration - - Weight 92 kg (202 lb 12.8 oz) 09/28/2015 10:00 P M CDT Height 165.1 cm (5' 5 ) 09/28/2015 10:00 PM CDT Body Mass Index 33.75 09/28/2015 10:00 PM CDT Plan of Treatment Health Maintenance Due Date Last Done Comments DTAP/TDAP/TD VACCINES (1 - Tdap) 2002 HEPATITIS B VACCINES (1 of 3 - 19+ 3-dose series) 12/24 HPV/Cotest (21-29) 01/19/2004 HPV VACCINES (1 - 3-dose SCDM series) 2010 CERVICAL CANCER SCREENING 2013 HPV/Cotest (30-65) 2013 PAP SMEAR 2013 BREAST CANCER SCREENING 2023 INFLUENZA VACCINE (#1) 2024 Insurance MEDICAID [place]
--- OUTSIDE RECORDS SUMMARY | 2025-03-02 20:10 | XMS_ITS | Clinical Summary ---
[facility] Address [address] [facility] Attn: Epic Prelude ADT MANDA ROD [id number] Care Team Providers Care Chief Building Inspector Name Role Phone Unavailable Primary Care Provider Unavailabl e Allergies No known active allergies Medications docusate sodium (COLACE) 100 mg capsule Take 100 mg by mouth 2 times daily. 6 Active Vit 32-Yvbg-QV-DSS (ADVANCED ) 90-1-50 mg Tablet Take 1 Tablet by mouth daily. 6 Active cephALEXin (KEFLEX) 500 mg capsule Take 1 Capsule (500 mg) by mouth 4 times daily. 20 Capsule None 6 Active ibuprofen (MOTRIN) 800 mg tablet Take 800 mg by mouth every 8 hours as needed for Pain, Mild. 6 Active levothyroxine 125 mcg tablet Take 125 mcg by mouth daily internal consultant. 6 Active propranoloL (INDERAL) 20 mg tablet Take 1 Tablet by mouth 2 times daily. 5 Active clobetasoL (TEMOVATE) 0.05 % Ointment APPLY TO THE AFFECTED AREAS ON THE GROIN THREE TIMES A WEEK NEEDED NO MORE THAN 2 WEEKS PER MONTH NOT ON FACE 5 Active fluconazole (DIFLUCAN) 150 mg tabletIndicati ons:Yeast infection Take 1 Tablet (150 mg) by mouth daily. 1 Tablet 1 5 Active fluconazole (DIFLUCAN) 150 mg tablet Take 1 Tablet (150 mg) by mouth see administration instructions. Take one tablet by mouth every 6 weeks for 6 months. 6 Tablet 05/14/202 5 Active Active Problems No known active problems Encounters Date Type Department Care Team Description 02/11/2025 External Device Data STL ABSTRACTION Provider, Abstract 02/03/2025 Results Follow-Up [facility] [address] [place] [id number] Adeel Gay MD VAGINOSIS/VAGINITIS PANEL BASIC 01/30/2025 10:00 AM CDT Clinical Support [facility] [address] [place] [address] Vaginal odor (Primary Dx) 01/30/2025 Orders Only [address] [place] [address] Ginny Mora RN Vaginal odor from Last 3 Months Social History Tobacco Use Types Packs/Day Years Used Date Smoking Tobacco: Never Smokeless Tobacco: Never Alcohol Use Standard Drinks/Week Comments No 0 (1 standard drink = 0.6 oz pur e alcohol) Comments No Sex and Gender Information Value Date Recorded Sex Assigned at Not on file 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 Gender Identity Not on file Sexual Orientation Not on file Last Filed Vital Signs Vital Sign Reading Time Taken Comments Blood Pressure 122/70 07/29/2024 12:59 PM CDT Pulse - - Temperature 38.9 C (102 F) 09/28/2015 11:29 PM CDT Respiratory Rate 17 09/28/2015 11:29 PM CDT Oxygen Saturation - - Inhaled Oxygen Concentration - - Weight 87.1 kg (192 lb) 07/29/2024 12:59 PM CDT Height 165.1 cm (5' 5 ) 07/29/2024 12:59 PM CDT Body Mass Index 31.95 07/29/2024 12:59 PM CDT Plan of Treatment Health Maintenance Due Date Last Done Comments Pre-Diabetes and Diabetes Screening 1983 DTAP/TDAP/TD VACCINES (1 - Tdap) 2002 HEPATITIS B VACCINES (1 of 3 - 19+ 3-dose series) 12/24 HPV/Cotest (21-29) 01/19/2004 HPV VACCINES (1 - 3-dose SCDM series) 2010 CERVICAL CANCER SCREENING 2013 HPV/Cotest (30-65) 2013 PAP SMEAR 2013 BREAST CANCER SCREENING 2023 INFLUENZA VACCINE (#1) 2024 Procedures Procedure Name Priority Date/Time Associated Diagnosis Comments VAGINOSIS/VAGINITIS PANEL BASIC Routine 01/30/2025 9:56 AM CDT Vaginal odor from Last 3 Months Results * VAGINOSIS/VAGINITIS PANEL BASIC (01/30/2025 9:56 AM CDT) BACTERIAL VAGINOSIS NEGATIVE NEGATIVE [facility] ZARI SPECIES NOT DETECTED NOT DETECTED [facility] ZARI GLABRATA NOT DETECTED NOT DETECTED [facility] Comment: Zari species C. albicans, C. tropicalis, C. parapsilosis, and/or C. dubliniensis can be detected, but not differentiated, in the Zari spp. result. TRICHOMONAS VAGINALIS (TV), TMA NOT DETECTED NOT DETECTED [facility] Comment: Test Performed at: [facility] [address] [place] [id number] Avani Fontanez MD Genital SPECIMEN FROM VAGINA / Unknown 01/30/2025 9:56 AM CDT 01/30/2025 10:41 PM CDT Adeel Gay MD MICROBIOLOGY - GENERAL ORDERABLE S Final Result [facility] [phone] [facility] [address] [place] [phone] from Last 3 Months Insurance [facility] [employer] MED[employer]
--- OUTSIDE RECORDS SUMMARY | 2025-03-02 20:10 | XMS_ITS | Encounter Summary ---
Author Organization [facility] Address [address] [place] [address] Care Team Providers Care Shredded Filler Hopper Feeder Name Role Phone Unavailable Primary Care Provider Unavailabl e Encounter Details Date Type Department Care Team (Late st Contact Info) Description 02/03/2025 Results Follow-Up [facility] [place] [address] [place] [address] Adeel Gay MD [address] [place] [address] VAGINOSIS/VAGINITIS PANEL BASIC Social History Tobacco Use Types Packs/Day Years Used Date Smoking Tobacco: Never Smokeless Tobacco: Never Alcohol Use Standard Drinks/Week Comments No 0 (1 standard drink = 0.6 oz pur e alcohol) Comments No Sex and Gender Information Value Date Recorded Sex Assigned at Not on file Legal Sex Female 6:[address] Gender Identity Not on file Sexual Orientation Not on file documented as of this encounter Plan of Treatment Not on file documented as of this encounter Visit Diagnoses Not on filedocumented in this encounter
--- NOTE | 2025-03-02 20:19 | W.ED.UPPEXIN ---
HPI - Extremity Injury (Upper) General: Chief Complaint: Extremity Injury, Upper Stated Complaint: RT shoulder Pain Time Seen by Provider: 03/02/25 20:19 Source: patient Mode of arrival: ambulatory Limitations: no limitations History of Present Illness: Patient is a nice 40-year-old female here with complaints of right shoulder pain over the past week or so. No known injury or trauma. 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 Patient states she is having pain deep in her shoulder joint. She states she is now having trouble with any form of range of motion. She has been treating with krnd-euy-admqawh anti-inflammatories and has also tried ice and heat. She does have a follow-up appointment with her primary care provider scheduled in 2 weeks. She feels like pain radiates down into her elbow but can move the elbow joint freely. She denies numbness, tingling, loss of sensation to the arm. MD complaint: injury to: right and shoulder Associated symptoms: Denies neck pain Related Data Home Medications ?Medication ?Instructions ?Recorded ?Confirmed cetirizine 10 mg tablet (All Day 10 mg PO DAILY PRN Allergy Symptoms 02/02/21 04/02/24 Allergy (cetirizine)) omeprazole 20 mg capsule,delayed 20 mg PO DAILY 02/02/21 04/02/24 release aiblckmg-wda-lwkyo acid 200 1 tab PO DAILY 06/09/21 04/02/24 mcg-collagen, hydrolyzed 25 mg chew tablet (Women's Multivitamin with Collagen) Saccharomyces boulardii 250 mg 250 mg PO BID 03/28/23 04/02/24 capsule (Daily Probiotic (S. boulardii)) sucralfate 1 gram tablet (Carafate) 1 g PO BID 06/09/23 04/02/24 Previous Rx's ?Medication ?Instructions ?Recorded ptt supenator #1 ea 11/16/20 ibuprofen 800 mg tablet 800 mg PO Q8H #40 tabs 01/04/22 levothyroxine 125 mcg capsule 125 mcg PO DAILY #60 caps 04/29/22 estradiol 1 mg tablet 1 mg PO DAILY #90 tabs 05/26/22 Synthroid 125 mcg tablet 125 mcg PO DAILY #90 tabs 06/09/23 (levothyroxine) liothyronine 5 mcg tablet (Cytomel) 7.5 mcg (1.5 x 5 mcg) PO DAILY 08/31/23 #135 tabs liraglutide 0.6 mg/0.1 mL (18 mg/3 See Rx Instructions SUBCUT 08/31/23 mL) subcutaneous pen injector .COMPLEX #9 mL (Victoza 3-Marcello) propranolol 20 mg tablet See Rx Instructions .Route 10/24/23 .COMPLEX #60 tabs metformin 500 mg tablet,extended See Rx Instructions .Route 03/04/24 release 24 hr .COMPLEX #180 tabs propranolol 20 mg tablet See Rx Instructions .Route 12/17/24 .COMPLEX #60 tabs prednisone 10 mg tablet 10 mg PO DAILY 7 days #27 tabs 03/02/25 Allergies Allergy/AdvReac Type Severity Reaction Status Date / Time adhesive Allergy ALGY-Rash Verified 05/30/24 01:29 adhesive tape Allergy itching Verified 05/30/24 01:29 and rash Review of Systems Musc: Reports: joint pain (R shoulder) and limited range of motion (R shoulder); Denies: neck pain, extremity pain, extremity swelling, joint swelling, joint redness or joint warmth Neuro: Denies: numbness in extremities or sensory changes PFSH ED PFSH: Medical History Loss of perineal body, female Uterine prolapse Torsion of left ovary Still has ovary but was surgically reduced GERD (gastroesophageal reflux disease) Renal calculus Hypothyroidism Surgical History Status post wisdom tooth extraction S/P tonsillectomy S/P cholecystectomy Status post lumbar laminectomy L4/5 Status post hysteroscopic polypectomy S/P dilation and curettage Family History Father CAD (coronary artery disease) Myocardial infarction age less than 55 Hypertension Heart disease Hypercholesteremia Mother Breast cancer dx age 63 Ovarian cancer dx age 58 Uterine cancer dx age 58 Grandmother Breast cancer Maternal--dx age 30's or 40's Diabetes Maternal Thyroid disease Maternal Grandfather Hypertension Paternal Sister Thyroid disease Denies family history of Colon cancer Stroke Social History Smoking and tobacco/nicotine status: never used tobacco/nicotine Substance/Drug Use: never Physical Exam Const: COMMON NORMALS: no acute distress, average body habitus, no limitations, healthy appearing, alert and well nourished Extremity: COMMON NORMALS: capillary refill normal GENERAL: Yes normal exam except as noted RIGHT UPPER EXTREMITY: Yes shoulder joint (TTP anterior joint line and lateral posterior scapula) Right shoulder: Yes Right shoulder joint inspection exam (normal gross inspection of shoulder), Yes Right shoulder joint ROM exam (reporting limited ROM in all mondragon due to discomfort) and Yes Right shoulder joint neurovascular exam (normal) Neuro: COMMON NORMALS: moves all extremities, no focal motor deficits and no sensory deficits noted SENSORIUM/ORIENTATION: Yes alert Course Vital Signs: Vital signs: Vital Signs Temperature 97.4 F L 03/02/25 20:08 Pulse Rate 60 03/02/25 20:08 Respiratory Rate 16 03/02/25 20:08 Blood Pressure 182/108 03/02/25 20:08 Pulse Oximetry 100 03/02/25 20:08 MDM - Extremity Injury (Upper) Medical Decision Making XR of the right shoulder obtained. Personal interpretation shows calcific tendinitis. She will be placed on steroids. Recommend continued anti-inflammatory use in addition to ice/heat. Recommend follow-up with primary care in 2 weeks. Medical Records I reviewed the patient's medical records. Lab Data Radiology Impressions Shoulder X-Ray 03/02/25 20:09 IMPRESSION: Calcific tendinitis right supraspinatus tendon No acute fracture or dislocation XR interpretation done by ED provider, pending radiology final review Discharge Plan Discharge Patient Disposition: Home Clinical Impression: Calcific tendinitis of right shoulder Condition: Stable Prescriptions: New prednisone 10 mg tablet 10 mg PO DAILY 7 Days Qty: 27 0RF Rx Instructions: 6 tabs on days 1-2, 5 tabs on days 3, 4 tabs on day 4, 3 tabs on day 5, 2 tabs on day 6, 1 tab on day 7 No Action (DME) ptt supenator See Rx Instructions .Route .MEDSUPPLY Qty: 1 0RF Rx Instructions: As directed cetirizine [All Day Allergy (cetirizine)] 10 mg tablet 10 mg PO DAILY PRN (Reason: Allergy Symptoms) omeprazole 20 mg capsule,delayed release(DR/EC) 20 mg PO DAILY Women's Multivitamin Collagen 200 mcg- 25 mg tablet,chewable 1 tab PO DAILY sucralfate [Carafate] 1 gram tablet 1 g PO BID levothyroxine [Synthroid] 125 mcg tablet 125 mcg PO DAILY Qty: 90 0RF liothyronine [Cytomel] 5 mcg tablet 7.5 mcg PO DAILY Qty: 135 1RF Victoza 3-Marcello 0.6 mg/0.1 mL (18 mg/3 mL) pen injector See Rx Instructions SUBCUT .COMPLEX Qty: 9 1RF Rx Instructions: inject 0.6mg subcutaneously once daily x 7 days; then 1.2mg daily, not to exceed 1.8mg/day SUBCUT Saccharomyces boulardii [Daily Probiotic (S. boulardii)] 250 mg capsule 250 mg PO BID levothyroxine 125 mcg capsule 125 mcg PO DAILY Qty: 60 8RF estradiol 1 mg tablet 1 mg PO DAILY Qty: 90 4RF propranolol 20 mg tablet See Rx Instructions .ROUTE .COMPLEX Qty: 60 0RF Dose Instruction: Take 1 tablet by mouth twice daily Rx Instructions: Take 1 tablet by mouth twice daily metformin 500 mg tablet extended release 24 hr See Rx Instructions .ROUTE .COMPLEX Qty: 180 0RF Dose Instruction: Take 2 tablets by mouth twice daily Rx Instructions: Take 2 tablets by mouth twice daily propranolol 20 mg tablet See Rx Instructions .ROUTE .COMPLEX Qty: 60 3RF Dose Instruction: Take 1 tablet by mouth twice daily Rx Instructions: Take 1 tablet by mouth twice daily ibuprofen 800 mg tablet 800 mg PO Q8H Qty: 40 0RF Discharge Orders: Discharge ED (Routine); Ordered 03/02/25 Ordered By: Amber Delvalle Referrals: Ami Urbano MD [Primary Care Provider, Internal Medicine] Patient Instructions: Calcific Tendinitis (ED), Patient Portal & Valentino Instructions Activity Restrictions/Additional Instructions: As we discussed, in addition to the prescribed steroids, you may continue taking qwdu-azs-bnwhmxl anti-inflammatory such as ibuprofen 800 mg every 6-8 hours. You may continue using heat. Please follow-up with primary care as scheduled for reevaluation. Further treatments for your shoulder could include a referral to orthopedics, physical therapy, continued conservative management, advanced imaging such as MRI, etc. Print Language: Arabic Coding Level of Care Code ED Way Inspector for Ishmael Flores
== END 2025-03-02 21:06 | disposition home or self-care (01) ==
PROVIDERS: Emergency Provider Physician Assistant; PCP Internal Medicine
DX: M75.31 Calcific tendinitis of right shoulder (principal)
CPT/HCPCS: 73030; 96372; 99284; J1100; J1885